=== PATIENT | female | born 1945 | race African-American/Black ===

== ENCOUNTER 2022-06-01 21:13 | Inpatient (IN) | payer OTHER ==
[~2022-06-01] VITALS: Ht 167.6 cm; Wt 73.5 kg
[2022-06-01 21:13] VITALS: BP 100/66
--- NOTE | 2022-06-01 21:24 | NUR ---
2114 RECEIEVED PATIENT FROM PARAMEDICS ON BIPAP. PLACED PT ON OUR BIPAP IPAP 12 EPAP 6 RR 20 FIO2 100%. WILL TITRATE FIO2. PT ALERT.
[2022-06-01] MEDS ORDERED: NACL 0.9% 1,000 ML IV ONE (21:45)
[2022-06-01] MEDS ORDERED: AZITHROMYCIN 500 MG in DEXTROSE 5% 250 ML IV ONE (21:45)
--- NOTE | 2022-06-01 21:47 | NUR ---
RT AT BEDSIDE FOR ABG BLOOD DRAW
--- NOTE | 2022-06-01 21:50 | NUR ---
FOOD TRUCK CATERER AT BEDSIDE OBTAINING BLOOD CULTURES
[2022-06-01 21:51] LABS: MEAN CORPUSCULAR HEMOGLOBIN 33 pg (27-31); MEAN CORPUSCULAR HGB CONC 32 g/dL (33-37); PLATELET COUNT (AUTO) 361 K/uL (140-450); RED BLOOD CELL COUNT(AUTO) 1.91 MIL/uL (4.20-5.40); RED CELL DISTRIBUTION WIDTH 19.3 % (11.6-13.7); WHITE BLOOD COUNT (AUTO) 10.4 K/uL (4.8-10.8)
[2022-06-01] MEDS ORDERED: cefTRIAXone 1,000 MG VIAL ONE (21:51)
--- NOTE | 2022-06-01 21:59 | NUR ---
XRAY AT BEDSIDE
--- NOTE | 2022-06-01 22:20 | NUR ---
# 16 FR Larson catheter with 10 ml utilizing sterile technique. Immediate return of 50 ml CLOUDY YELLOW urine noted. Bedside drainage bag placed below level of bladder. Urine sample collected and sent to lab. Pt tolerated procedure WELL.
--- NOTE | 2022-06-01 22:21 | NUR ---
2148 POST ABG. LOWERED FIO2 TO 28%
[2022-06-01 22:22] LABS: ALBUMIN 2.4 g/dL (3.4-5.0); ANION GAP 11.4 (8-16); ASPARTATE AMINOTRANSFERASE 35 U/L (15-37); CARBON DIOXIDE 27.6 mmol/L (21-32); CHLORIDE 108 mmol/L (98-107); CREATININE 2.9 mg/dL (0.6-1.3); GLUCOSE 170 mg/dL (74-106); SODIUM SERUM 143 mmol/L (136-145); TOTAL BILIRUBIN 0.5 mg/dL (0.0-1.0)
[2022-06-01 22:25] LABS: HEMOGLOBIN 6.3 g/dL (12.0-16.0)
[2022-06-01] MEDS ORDERED: FUROSEMIDE 40 MG/4 ML VIAL IVP ONE (22:25)
[2022-06-01 22:26] LABS: HEMATOCRIT 19.7 % (36-48)
[2022-06-01 22:39] LABS: UREA NITROGEN, BLOOD 89 mg/dL (7-18)
[2022-06-01 22:41] LABS: PROTHROMBIN TIME 13.6 secs (10.8-13.4)
[2022-06-01] MEDS ORDERED: AZITHROMYCIN 500 MG INJ VIAL IV ONE (22:43)
[2022-06-01 22:46] LABS: LYMPHOCYTES % (MANUAL) 0 % (20-46); MONOCYTES % (MANUAL) 9 % (5-12)
[2022-06-01 23:03] LABS: APPEARANCE,URINE CLOUDY (CLEAR); BILIRUBIN,URINE NEGATIVE (NEGATIVE); BLOOD, URINE 3+ (NEGATIVE); COLOR,URINE YELLOW (YELLOW); LEUKOCYTE ESTERASE ,URINE 2+ (NEGATIVE); NITRITE, URINE NEGATIVE (NEGATIVE); PH,URINE 5.5 (5.0-9.0); UGLUCOSE NEGATIVE (NEGATIVE)
--- NOTE | 2022-06-01 23:17 | NUR ---
PT IN SEMI FOWLERS POSITION AND RESTING COMFORTABLY. BED IN LOWEST POSITION AND RAILS UP X2.
[2022-06-01 23:31] LABS: RBC,URINE 20-50 /HPF (0-5)
[2022-06-01 23:32] LABS: YEAST,URINE Many /HPF (None Seen)
[2022-06-02] VITALS (20 sets, daily range): BP systolic 104–149; BP diastolic 57–82
--- NOTE | 2022-06-02 01:11 | NUR ---
CROP FARM HELPER AT BEDSIDE
--- NOTE | 2022-06-02 01:23 | NUR ---
COVIS/PALMIRA SWAB COLLECTED AND HANDED TO LIBRARY SUPERVISOR
[2022-06-02 01:42] LABS: ANION GAP 14.1 (8-16); CARBON DIOXIDE 26.7 mmol/L (21-32); CHLORIDE 107 mmol/L (98-107); CREATININE 2.7 mg/dL (0.6-1.3); GLUCOSE 148 mg/dL (74-106); POTASSIUM 3.8 mmol/L (3.5-5.1); SODIUM SERUM 144 mmol/L (136-145)
[2022-06-02 02:02] LABS: UREA NITROGEN, BLOOD 94 mg/dL (7-18)
[2022-06-02 02:09] LABS: PROTHROMBIN TIME 13.2 secs (10.8-13.4)
[2022-06-02] MEDS ORDERED: INTUBATION KIT MC ONE (02:52)
--- NOTE | 2022-06-02 02:59 | NUR ---
02:59 etomidate 20mg pushed 03:00 succinylcholine 100mg pushed 03:02 intubated, 23 at the teeth 03:06 XR at bedside.
[2022-06-02] MEDS ORDERED: PROPOFOL 1000 MG/100 ML PREMIX 100 ML IV ONE ×3 (03:08→12:53)
[2022-06-02] MEDS ORDERED: PROPOFOL 200 MG/20 ML VIAL IV ONE (03:15)
--- NOTE | 2022-06-02 03:15 | NUR ---
XRAY AT BEDSIDE. DR DIEHL CONFIRMED PLACEMENT OF OG TUBE AND INTUBATION.
[2022-06-02] MEDS ORDERED: NOREPINEPHRINE 4 MG/4 ML VIAL IV ONE ×2 (03:26→07:05)
--- NOTE | 2022-06-02 03:26 | NUR ---
DR. DIEHL NOTIFIED OF BP OF 76/38. VERBAL ORDER FOR LEVOPHED 4MG IV DRIP RECIEVED
[2022-06-02] MEDS ORDERED: NOREPINEPHRINE 4 MG in DEXTROSE 5% 250 ML IV PRN (03:30)
--- NOTE | 2022-06-02 03:34 | NUR ---
0245 PATIENT BECAME TACHYPNEIC ON BIPAP. PATIENT WAS DESATING. ELECTRIC FURNACE OPERATOR DR WAS CALLED AND PATIENT WAS INTUBATED BY ER DR DIEHL. TUBE SIZE WAS 7.0 AT 23 LIP. AND PLACED ON CARESCAPE VENT. SETTINGS ARE AC 20 VT 500 PEEP 5 AT 100% FIO2. SPUTUM WAS UPTAINED AND SENT TO LAB. DR DIEHL SAW CHEST XRAY AND TUBE PLACEMENT WAS OK
--- NOTE | 2022-06-02 04:00 | NUR ---
DR DIEHL PLACING CENTRAL LINE
--- NOTE | 2022-06-02 04:09 | NUR ---
XRAY AT BEDSIDE FOR CENTRAL LINE PLACEMENT
--- NOTE | 2022-06-02 04:19 | NUR ---
TALKED TO SON AND DAUGHTER ABOUT PT CONDITION. OBTAINED VERBAL CONSENT FOR BLOOD TRANSFUSION.
--- NOTE | 2022-06-02 04:42 | NUR ---
0430 POST ABG. LOWERED FIO2 TO 28% AND LOWERED RATE TO 16 ON VENT
[2022-06-02] MEDS ORDERED: PIPERACILLIN/TAZOBACTAM 2.25 GM VIAL IV ONE (06:02)
[2022-06-02] MEDS: PIPERACILLIN/TAZOBACTAM 2.25 GM in DEXTROSE 5% 50 ML IV SCH ×3 (06:08→21:00)
--- NOTE | 2022-06-02 06:50 | NUR ---
Patient will be admitted to care of DR ROBBINS. Admited to ICU. Will go to room ICU-5. Belongings list completed. Report to HELDER YAÑEZ.
--- NOTE | 2022-06-02 07:00 | NUR ---
RECEIVED ENDORSEMENT FROM ER NURSE (BAHMAN Cruz
--- NOTE | 2022-06-02 07:35 | NUR ---
SBAR REPORT RECEIVED FROM PARI PENDLTEON, ALL CARES ASSUMED. PT INTUBATED, SEDATED WITH PROPOFOL DRIP. PRICE CATHETER DRAINING TO GRAVITY. BED IN LOW AND LOCKED POSITION.
[2022-06-02] MEDS ORDERED: LORazepam 2 MG/ML VIAL IVP PRN (07:45)
[2022-06-02] MEDS ORDERED: ONDANSETRON 4 MG/2 ML VIAL IVP PRN (07:45)
[2022-06-02] MEDS ORDERED: DOCUSATE SODIUM 100 MG GELCAP PO PRN (07:45)
[2022-06-02] MEDS ORDERED: MAG SULF 2000 MG/WATER PREMIX 50 ML IV PRN (07:45)
[2022-06-02] MEDS ORDERED: POTASSIUM CHLORIDE 10 MEQ TABER PO PRN (07:45)
[2022-06-02] MEDS ORDERED: ZOLPIDEM 5 MG TAB PO PRN (07:45)
--- NOTE | 2022-06-02 07:51 | NUR ---
ENDORSED PATIENT TO DAY SHIFT (CADY Johnson RN)
--- NOTE | 2022-06-02 08:03 | NUR ---
TECHNICAL ERROR IV TITRATION SPREADSHEET DELETED, UNABLE TO FILE TITRATION OF VITALS AND MEDICATION, ALL DOCUMENTATION DELETED. ALL INFORMATION VERIFIED BY 2ND NURSE PRECIOIUS, RN. 04:55 LEVO 18MCG BP 118/76, O2 97%, HR 116 PROPOFOL 14.25ML/HR RASS -2 05:40 LEVO 18MCG BP 100/52, O2 97%, HR 112 PROPOFOL 14.25ML/HR RASS -2 05:45 LEVO 18MCG BP 82/52, O2 96%, HR 116 PROPOFOL 14.25ML/HR RASS -1 05:50 LEVO 20MCG BP 74/43, O2 100%, HR 120 PROPOFOL 14.25ML/HR RASS -1 05:55 LEVO 22MCG BP 99/58, O2 96%, HR 116 PROPOFOL 14.25ML/HR RASS -2 06:00 LEVO 22MCG BP 104/76, O2 98%, HR 111 PROPOFOL 14.25ML/HR RASS -2 06:05 LEVO 22MCG BP 101/70, O2 96%, HR 121 PROPOFOL 14.25ML/HR RASS -2 06:10 LEVO 22MCG BP 99/54, O2 96%, HR 104 PROPOFOL 14.25ML/HR RASS -2 06:55 LEVO 22MCG BP 108/66, O2 97%, HR 115 PROPOFOL 14.25ML/HR RASS -2
--- NOTE | 2022-06-02 09:15 | NUR ---
SON OF PT AT BEDSIDE. UPDATE GIVEN, ALL QUESTIONS ANSWERED AT THIS TIME.
[2022-06-02] MEDS: FUROSEMIDE 40 MG/4 ML VIAL IVP SCH (09:51)
[2022-06-02] MEDS: PANTOPRAZOLE 40 MG INJ VIAL IVP SCH (09:52)
[2022-06-02 11:29] LABS: BASOPHILS % (AUTO) 0.3 % (0.0-2.0); EOSINOPHILS # (AUTO) 0.1 K/uL (0-0.4); EOSINOPHILS % (AUTO) 0.5 % (0.0-4.0); HEMATOCRIT 22.6 % (36-48); HEMOGLOBIN 7.4 g/dL (12.0-16.0); LYMPHOCYTES # (AUTO) 0.5 K/uL (2.5-16.5); MEAN CORPUSCULAR HEMOGLOBIN 32 pg (27-31); MEAN CORPUSCULAR HGB CONC 33 g/dL (33-37); MEAN CORPUSCULAR VOLUME 97.7 fL (80-94); MONOCYTES # (AUTO) 1.6 K/uL (0.8-1.0); NEUTROPHILS # (AUTO) 9.2 K/uL (1.8-7.7); NEUTROPHILS % (AUTO) 81.2 % (42.2-75.2); PLATELET COUNT (AUTO) 331 K/uL (140-450); RED BLOOD CELL COUNT(AUTO) 2.31 MIL/uL (4.20-5.40); RED CELL DISTRIBUTION WIDTH 20.1 % (11.6-13.7); WHITE BLOOD COUNT (AUTO) 11.3 K/uL (4.8-10.8)
--- NOTE | 2022-06-02 12:45 | NUR ---
WOUND CARE EVALUATION NOTES: REASON FOR EVALUATION: SACRAL AND RIGHT FOOT WOUNDS. WOUND ASSESSMENT COMPLETED ON THIS 76 Y/O FEMALE ADMITTED TO ICU UNIT FOR SEVERE ANEMIA, UTI, PNA. PATIENT IS TOTAL CARE, INTUBATED, TUBE FEEDING, BEDBOUND. APHASIC. PLAN OF CARE AND PRESSURE PREVENTATIVE MEASURES DISCUSSED WITH PATIENT AND PRIMARY RN. PATIENT ADMITTED WITH WOUNDS ON SACRALCOCCYX, RIGHT LOWER EXTREMITY, AND RIGHT FOOT. COMORBIDITIES RELATED TO FURTHER SKIN BREAKDOWN SUCH IMPAIRED OR DECREASED MOBILITY AND DECREASED FUNCTIONAL ABILITY, LOW ALBUMIN LEVEL. INTEGUMENTARY: - RIGHT LATERAL LOWER EXTREMITY ULCER - 6 X 4 X 1 CM, WOUND BED PINK WITH YELLOW SLOUGH, MINIMAL SEROUS DISCHARGE, NO ODOR. ODESSA-WOUND INTACT. - RIGHT FOOT MULTIPLE UNSTAGEABLE WOUNDS: - LARGEST ON RIGHT HEEL 6 X 8 X 0 CM, WOUND BED BLACK, ROUGH, HARD, NO DISCHARGE, NO ODOR, PERIWOUND INTACT. - RIGHT ANTERIOR DORSUM FOOT 4 X 3.5 X 0 CM, WOUND BED BLACK, ROUGH, HARD, NO DISCHARGE, NO ODOR, PERIWOUND INTACT. - RIGHT ANTERIOR LATERAL DORSUM FOOT 4 X 4 X 0 CM WOUND BED BLACK, ROUGH, HARD, NO DISCHARGE, NO ODOR, PERIWOUND INTACT. - RIGHT 2ND ANTERIOR TOE 1 X 1 X 0 CM, WOUND BED BLACK, ROUGH, HARD, NO DISCHARGE, NO ODOR, PERIWOUND INTACT. - RIGHT PLANTAR HALLUX 2 X 2 X 0 CM, WOUND BED BLACK, ROUGH, HARD, NO DISCHARGE, NO ODOR, PERIWOUND INTACT. - SACRALCOCCYX 1 X 1 X 0.1 CM STAGE II PRESSURE ULCER, WOUND BED PINK, MINIMAL SEROSANGUINOUS DRAINAGE, NO ODOR. PERIWOUND DENUDED. RECOMMENDATIONS: - RIGHT LATERAL LOWER EXTREMITY ULCER: CLEANSE WITH NS, PAT DRY, APPLY THERAHONEY, COVER WITH GAUZE, AND COVER WITH FOAM DRESSING DAILY AND PRN IF SOILED. - RIGHT FOOT MULTIPLE UNSTAGEABLE WOUNDS: ALL WOUNDS -- CLEANSE WITH NS, PAT DRY, APPLY SKINTEGRITY BARRIER, AND LEAVE WATER JET LOOM FIXER DAILY AND PRN IF SOILED. - SACRALCOCCYX: CLEANSE WITH NS, PAT DRY, APPLY Z-GAURD, COVER WITH FOAM DRESSING DAILY AND PRN IF SOILED. - OFFLOAD BILATERAL HEELS BY PLACING BILATERAL HEEL PROTECTORS. - TURN AND REPOSITION PATIENT Q2H TO LEFT AND RIGHT SIDE TO OFFLOAD SACRALCOCCYX. - ASSESS AND MONITOR SKIN CONDITION DURING POSITION CHANGE. PLEASE PAY ATTENTION TO SACRALCOCCYX AND HEELS. - KEEP SKIN DRY AND CLEAN AT ALL TIMES. - RD CONSULT RECOMMENDATIONS DISCUSSED WITH PRIMARY RN. WILL FOLLOW-UP PATIENT Q7-10 DAYS AND PRN. PLEASE CONTACT WOUND CARE NURSE FOR ANY CONCERNS AND CHANGES IN WOUND CONDITION.
--- NOTE | 2022-06-02 13:01 | NUR ---
PATIENT HAS BEEN SCREENED AND CATEGORIZED HIGH NUTRITION RISK. PATIENT WILL BE SEEN WITHIN 1-2 DAYS OF ADMISSION. / LIVIER GRIFFIN RD
[2022-06-02] MEDS: METOCLOPRAMIDE 10 MG/10 ML SYRP UDC GT SCH (16:30)
[2022-06-02] MEDS ORDERED: DILTIAZEM 125 MG in DEXTROSE 5% 100 ML IV PRN (18:40)
--- NOTE | 2022-06-02 19:39 | NUR ---
SBAR REPORT GIVEN TO YEISON PENDLETON, ALL CARES ENDORSED.
[2022-06-02] MEDS ORDERED: DILTIAZEM 125 MG/25 ML VIAL IV ONE ×2 (20:03→21:57)
[2022-06-02 21:29] LABS: MAGNESIUM 2.5 mg/dL (1.8-2.4); PHOSPHORUS 4.3 mg/dL (2.5-4.9)
[2022-06-03] VITALS (27 sets, daily range): BP systolic 97–135; BP diastolic 52–72
[2022-06-03] MEDS: PROPOFOL 1000 MG/100 ML PREMIX 100 ML IV PRN ×5 (00:09→22:22)
--- NOTE | 2022-06-03 00:52 | NUR ---
PATIENT SEDATED RASS -3 ET-TUBE RATE 15, TV 500, FI02 30% PEEP 5 SAT 100%. STARTED CARDIZEM 10 MG,2030 HEART RATE 137. PROPOFOL AT 30 MCG, LEVOPHED AT 6 MCG. B/P 107/72 URINE FOR RANDOM NA, PROTEIN, CREAT. SENT.PATIENT HAS RIGHT SUB-CLAVIAN TRIPLE LUMEN PATIENT HAS A GT CLAMPED. PATIENT HAS A F/C DRAINING YELLOW URINE. PATIENT A-FIB. NO DISTRESS NOTED.
[2022-06-03] MEDS: GAUZE TP SCH ×2 (01:28→13:07)
[2022-06-03] MEDS: THERAHONEY GEL 42.5 GM TP SCH ×2 (01:31→13:08)
[2022-06-03] MEDS: Z-GUARD PASTE TP SCH ×2 (01:32→13:08)
[2022-06-03] MEDS: NOREPINEPHRINE 8 MG in DEXTROSE 5% 250 ML IV PRN (03:00)
--- NOTE | 2022-06-03 04:14 | NUR ---
STARTED FEEDING 0200 NEPRO 20 HOUR GOAL 45 WATER FLUSH 50CC EVERY 8 HOUR.
[2022-06-03] MEDS: PIPERACILLIN/TAZOBACTAM 2.25 GM in DEXTROSE 5% 50 ML IV SCH ×3 (05:00→22:15)
[2022-06-03 05:57] LABS: BASOPHILS % (AUTO) 0.1 % (0.0-2.0); EOSINOPHILS # (AUTO) 0.1 K/uL (0-0.4); HEMATOCRIT 24.6 % (36-48); HEMOGLOBIN 8.2 g/dL (12.0-16.0); LYMPHOCYTES # (AUTO) 0.6 K/uL (2.5-16.5); MEAN CORPUSCULAR HEMOGLOBIN 32 pg (27-31); MEAN CORPUSCULAR HGB CONC 33 g/dL (33-37); MEAN CORPUSCULAR VOLUME 95.7 fL (80-94); MONOCYTES # (AUTO) 1.4 K/uL (0.8-1.0); PLATELET COUNT (AUTO) 308 K/uL (140-450); RED BLOOD CELL COUNT(AUTO) 2.57 MIL/uL (4.20-5.40); RED CELL DISTRIBUTION WIDTH 19.3 % (11.6-13.7)
[2022-06-03 06:44] LABS: ANION GAP 12.7 (8-16); CARBON DIOXIDE 26.8 mmol/L (21-32); CHLORIDE 107 mmol/L (98-107); CREATININE 2.7 mg/dL (0.6-1.3); GLUCOSE 89 mg/dL (74-106); POTASSIUM 3.5 mmol/L (3.5-5.1); SODIUM SERUM 143 mmol/L (136-145)
[2022-06-03 07:14] LABS: UREA NITROGEN, BLOOD 89 mg/dL (7-18)
--- NOTE | 2022-06-03 07:15 | NUR ---
SBAR REPORT RECEIVED FROM IRINA PENDLETON, ALL CARES ASSUMED. PT INTUBATED, SEDATED WITH PROPOFOL DRIP. LEVOPHED AND DILTIAZEM DRIP ACTIVE WELL. PRICE CATHETER DRAINING TO GRAVITY. BED IN LOW AND LOCKED POSITION.
[2022-06-03 07:57] LABS: LYMPHOCYTES % (AUTO) 5.6 % (20.5-51.1); MONOCYTES % (AUTO) 13.5 % (1.7-9.3); NEUTROPHILS % (AUTO) 79.8 % (42.2-75.2)
[2022-06-03] MEDS: FUROSEMIDE 40 MG/4 ML VIAL IVP SCH ×2 (08:24→22:33)
[2022-06-03] MEDS: METOCLOPRAMIDE 10 MG/10 ML SYRP UDC GT SCH ×3 (08:24→16:55)
[2022-06-03] MEDS: PANTOPRAZOLE 40 MG INJ VIAL IVP SCH (08:24)
--- NOTE | 2022-06-03 09:00 | NUR ---
DR. HOANG ROUNDARIANNA AT BEDSIDE. VERBAL ORDER TO STOP DILTIAZEM DRIP TO AID IN WEANING OF LEVOPHED. VERBAL ORDER TO START AMIODARONE DRIP IF PT BEGINS TO HAVE AFIB AGAIN.
--- NOTE | 2022-06-03 11:00 | NUR ---
DR. SANDERSON ROUNDING AT BEDSIDE. UPDATE GIVEN, NO NEW ORDERS RECEIVED AT THIS TIME.
[2022-06-03] MEDS ORDERED: LIP80 PO (11:12)
[2022-06-03] MEDS ORDERED: RIVA20TA PO (11:25)
[2022-06-03] MEDS ORDERED: DULO20EC PO (11:25)
[2022-06-03] MEDS ORDERED: ATRN INH (11:25)
[2022-06-03] MEDS ORDERED: FERR325E14 PO (11:25)
[2022-06-03] MEDS ORDERED: FURO-572 PO (11:25)
[2022-06-03] MEDS ORDERED: CILO100T PO (11:25)
[2022-06-03] MEDS ORDERED: MULT-2253 PO (11:25)
[2022-06-03] MEDS ORDERED: DILT30TA18 PO (11:25)
[2022-06-03] MEDS ORDERED: DILTIAZEM 30 MG TAB PO SCH (13:00)
[2022-06-03] MEDS: FERROUS SULFATE 325 MG TABEC PO SCH ×2 (13:17→16:55)
--- NOTE | 2022-06-03 15:55 | NUR ---
DR. BONDS ROUNDING AT BEDSIDE. PLAN OF CARE DISCUSSED. DR. BONDS TO INPUT ORDERS.
[2022-06-03] MEDS: AMIODARONE 200 MG TAB PO SCH (16:54)
--- NOTE | 2022-06-03 19:44 | NUR ---
SBAR REPORT GIVEN TO IRINA RN, ALL CARES ENDORSED.
[2022-06-03] MEDS: cilostazoL 100 MG TAB PO SCH (22:33)
[2022-06-03] MEDS: ATORVASTATIN 80 MG TAB PO SCH (22:33)
[2022-06-04] VITALS (26 sets, daily range): BP systolic 69–141; BP diastolic 52–82
[2022-06-04 00:23] LABS: APPEARANCE,URINE CLEAR (CLEAR); BILIRUBIN,URINE NEGATIVE (NEGATIVE); BLOOD, URINE 3+ (NEGATIVE); COLOR,URINE YELLOW (YELLOW); LEUKOCYTE ESTERASE ,URINE TRACE (NEGATIVE); NITRITE, URINE NEGATIVE (NEGATIVE); PH,URINE 5.5 (5.0-9.0); UGLUCOSE NEGATIVE (NEGATIVE)
[2022-06-04 00:28] LABS: RBC,URINE 80-100 /HPF (0-5); TRIPLE PHOSPHATE CRYSTAL,UR None Seen /HPF (None Seen); URIC ACID CRYSTALS,URINE 0-10 /HPF (None Seen); WBC,URINE 20-60 /HPF (0-5)
[2022-06-04] MEDS: GAUZE TP SCH ×2 (01:00→13:24)
[2022-06-04] MEDS: THERAHONEY GEL 42.5 GM TP SCH ×2 (01:00→13:24)
[2022-06-04] MEDS: Z-GUARD PASTE TP SCH ×2 (01:00→13:31)
--- NOTE | 2022-06-04 01:19 | NUR ---
PATIENT SEDATED ON PROPOFOL 30 MCG. LEVOPHED 3 MCG. PATIENT HAS RT. SUBCLAVIAN TRIPLE LUMEN. PATIENT A-FIB HEART RATE HIGH 104 LOW 84. LUNGS DIMINISH HAS G-TUBE INFUSING NEPRO GOAL 45CC HOUR NO RESIDUAL RECEIVING 50 CC WATER FLUSH EVERY EIGHT HOURS.
[2022-06-04] MEDS: NOREPINEPHRINE 8 MG in DEXTROSE 5% 250 ML IV PRN ×2 (03:55→20:55)
[2022-06-04] MEDS: PROPOFOL 1000 MG/100 ML PREMIX 100 ML IV PRN ×3 (03:58→16:59)
[2022-06-04] MEDS: PIPERACILLIN/TAZOBACTAM 2.25 GM in DEXTROSE 5% 50 ML IV SCH ×3 (05:46→21:13)
[2022-06-04 06:26] LABS: ANION GAP 13.2 (8-16); CARBON DIOXIDE 26.8 mmol/L (21-32); CHLORIDE 105 mmol/L (98-107); CREATININE 2.7 mg/dL (0.6-1.3); GLUCOSE 145 mg/dL (74-106); SODIUM SERUM 141 mmol/L (136-145)
[2022-06-04 06:29] LABS: BASOPHILS % (AUTO) 0.3 % (0.0-2.0); EOSINOPHILS # (AUTO) 0.1 K/uL (0-0.4); HEMOGLOBIN 9.6 g/dL (12.0-16.0); LYMPHOCYTES # (AUTO) 0.7 K/uL (2.5-16.5); LYMPHOCYTES % (AUTO) 6.5 % (20.5-51.1); MEAN CORPUSCULAR HEMOGLOBIN 32 pg (27-31); MEAN CORPUSCULAR HGB CONC 33 g/dL (33-37); MEAN CORPUSCULAR VOLUME 96.3 fL (80-94); MONOCYTES # (AUTO) 1.2 K/uL (0.8-1.0); MONOCYTES % (AUTO) 11.5 % (1.7-9.3); NEUTROPHILS # (AUTO) 8.2 K/uL (1.8-7.7); NEUTROPHILS % (AUTO) 80.7 % (42.2-75.2); PLATELET COUNT (AUTO) 335 K/uL (140-450); RED BLOOD CELL COUNT(AUTO) 3.01 MIL/uL (4.20-5.40); RED CELL DISTRIBUTION WIDTH 19.6 % (11.6-13.7); UREA NITROGEN, BLOOD 82 mg/dL (7-18); WHITE BLOOD COUNT (AUTO) 10.2 K/uL (4.8-10.8)
--- NOTE | 2022-06-04 07:20 | NUR ---
SBAR REPORT RECEIVED FROM IRINA PENDLETON, ALL CARES ASSUMED. PT INTUBATED, SEDATED WITH PROPOFOL DRIP. LEVOPHED DRIP ACTIVE. PRICE CATHETER DRAINING TO GRAVITY. BED IN LOW AND LOCKED POSITION.
[2022-06-04] MEDS: METOCLOPRAMIDE 10 MG/10 ML SYRP UDC GT SCH ×3 (08:36→16:58)
[2022-06-04] MEDS: FERROUS SULFATE 300 MG/5 ML UDC GT SCH ×3 (08:37→16:58)
[2022-06-04] MEDS: FUROSEMIDE 40 MG/4 ML VIAL IVP SCH ×2 (08:37→21:13)
[2022-06-04] MEDS: PANTOPRAZOLE 40 MG INJ VIAL IVP SCH (08:37)
[2022-06-04] MEDS: AMIODARONE 200 MG TAB PO SCH (08:38)
[2022-06-04] MEDS: cilostazoL 100 MG TAB PO SCH ×2 (08:38→21:14)
--- NOTE | 2022-06-04 08:55 | NUR ---
DR. SANDERSON ROUNDING AT BEDSIDE. UPDATE GIVEN, NO NEW ORDERS AT THIS TIME.
[2022-06-04] MEDS ORDERED: FUROSEMIDE 20 MG/2 ML VIAL IVP SCH (09:00)
[2022-06-04] MEDS ORDERED: NON-FORMULARY ITEM (Duloxetine HCl* (Cymbalta*) 20 MG) PO SCH (09:00)
[2022-06-04] MEDS ORDERED: FUROSEMIDE 20 MG TAB PO SCH (09:00)
--- NOTE | 2022-06-04 12:31 | NUR ---
PT. WITH LOW FRANCA SCALE AT MODERATE TO HIGH RISK, CONTINUE TO FOLLOW PRESSURE INJURY PREVENTION INTERVENTIONS. -POSITIONING: TURN AND REPOSITION PATIENT Q 2H OR SOONER USE PILLOWS TO KEEP BONY PROMINENCES FROM DIRECT CONTACT WITH SURFACES USE REPOSITIONING WEDGES TO PROVIDE 30-DEGREE ANGLE FOR SIDE LYING POSITIONS OFFLOADING OR FOAM DRESSING TO ALL TUBING TO PREVENT MEDICAL DEVICES RELATED PRESSURE INJURY -RE-EVALUATING AND MANAGING INCONTINENCE MONITOR SKIN CONDITION DURING POSITION CHANGE DO NOT MASSAGE REDNESS, BONY PROMINENCES FREQUENT ODESSA-CARE AND PROVIDE BARRIER CREAMS PRN IF SOILING MOISTURE CONTROL BY OFFER BED GARCIA/URINAL /ABSORBENT PAD TO WICK AND HOLD MOISTURE KEEP SKIN DRY AND PROTECT FROM FRICTION -MANAGE FRICTION/SHEAR/MOBILITY KEEP HOB AT THE LOWEST LEVEL OF ELEVATION NO MORE THAN 30 DEGREE UNLESS OTHERWISE CONTRAINDICATED USE LIFT SHEET OR TRANSFER DEVICE TO MOVE PATIENT AND PREVENT LATERAL SHEER. PROTECT HEELS, ELBOWS BONY PROMINENCES WITH SKIN BERRIES OR FOAM DRESSING IF EXPOSED TO FRICTION OFFLOAD BILATERAL HEELS BY PLACING PILLOWS UNDER CALVES AT ALL TIMES, UNLESS OTHERWISE CONTRAINDICATED -PRESSURE REDISTRIBUTION SURFACE THERAPY LUZ ISOFLEX MATTRESS -NUTRITION: PLEASE FOLLOW RD RECOMMENDATIONS AND OFFER NUTRITION SUPPLEMENTS IF ORDERED.
--- NOTE | 2022-06-04 12:45 | NUR ---
DR. HOANG PERFORMED BEDSIDE BRONCHOSCOPY. PT TOLERATED WELL. VSS.
--- NOTE | 2022-06-04 13:12 | NUR ---
RT NOTES RT CALLED TO PT ROOM TO ASSIST IN A THERAPEUTIC AND DIAGNOSTIC BRONCHOSCOPY PERFORMED BY DR. HOANG @ 3711. SPUTUM SAMPLE COLLECTED. PT TOLERATED PROCEDURE WELL. NO DISTRESS NOTED.
[2022-06-04] MEDS: MIDODRINE 5 MG TAB PO SCH ×2 (13:24→19:06)
--- NOTE | 2022-06-04 16:07 | NUR ---
06/04/2022 RD INITIAL ASSESSMENT COMPLETED PLEASE REFER TO NUTRITION ASSESSMENT UNDER CARE ACTIVITY FOR ESTIMATED NUTRITIONAL NEEDS. 1.CONTINUE WITH NEPRO WITH GOAL RATE @45 ML/HR PT TOLERATES; FWF 50 ML Q8H 2.MONITOR FOR GASTRIC RESIDUAL 3.RD TO FOLLOW-UP IN 2-3 DAYS PATIENT IS HIGH RISK. RONNY CARLIN RD
--- NOTE | 2022-06-04 19:22 | NUR ---
SBAR REPORT GIVEN TO LAUREN PENDLETON, ALL CARES ENDORSED.
--- NOTE | 2022-06-04 19:25 | NUR ---
RECEIVED PT. FROM DAYS SHIFT HELDER SUERO. PT. ON ETT A/C PRVC RATE 16, FIO2 21%, TV 500, PEEP 5. IV RIGHT SUBCLAVIAN CENTRAL LINE RUNNING PROPOFOL DRIP 10 MCG/KG/MIN, LEVOPHED 8 MCG/MIN, PRECEDEX 0.5 MCG/KG/HR. PT. CONTROLLED AFIB ON MONITOR. NEPRO 45 ML/HR TOLERATING WELL. REPOSITIONED AND PLACED IN COMFORTABLE POSITION. BEDLOCK AND PLACED IN LOWEST HEIGHT. WILL CONT. TO MONITOR.
--- NOTE | 2022-06-04 19:41 | NUR ---
DAY SHIFT RN REPORT THAT PT. HAS AN ORDER FOR PICC LINE INSERTION. PICC LINE NURSE TONA NOTIFIED. CHARGE NURSE ALE CALLED THE SISTER OF THE PT. TO GET CONSENT AND WITNESSED BY ME. Addendum: 06/04/22 at 2010 by Elisa Gusman RN ERROR, WRONG PT.
[2022-06-04] MEDS: ATORVASTATIN 80 MG TAB PO SCH (21:14)
[2022-06-05] VITALS (28 sets, daily range): BP systolic 91–155; BP diastolic 51–91
--- NOTE | 2022-06-05 00:06 | NUR ---
RIGHT SUBCLAVIAN CENTRAL LINE DRESSING CHANGED. SITE PATENT AND INTACT. NO S/S OF INFECTION.
[2022-06-05] MEDS: GAUZE TP SCH ×2 (01:00→12:47)
[2022-06-05] MEDS: Z-GUARD PASTE TP SCH ×2 (01:00→12:47)
[2022-06-05] MEDS: THERAHONEY GEL 42.5 GM TP SCH ×2 (01:00→12:47)
[2022-06-05] MEDS: DEXMEDETOMIDINE HCL 400 MCG in NACL 0.9% 96 ML IV PRN ×2 (03:03→06:43)
--- NOTE | 2022-06-05 05:03 | NUR ---
LAB CAME FOR BLOOD DRAWN.
[2022-06-05 05:15] LABS: ANION GAP 11.3 (8-16); CARBON DIOXIDE 29.9 mmol/L (21-32); CHLORIDE 105 mmol/L (98-107); CREATININE 2.6 mg/dL (0.6-1.3); GLUCOSE 168 mg/dL (74-106); POTASSIUM 3.2 mmol/L (3.5-5.1); SODIUM SERUM 143 mmol/L (136-145)
[2022-06-05] MEDS: PIPERACILLIN/TAZOBACTAM 2.25 GM in DEXTROSE 5% 50 ML IV SCH ×3 (05:16→21:20)
[2022-06-05 05:22] LABS: BASOPHILS % (AUTO) 0.4 % (0.0-2.0); EOSINOPHILS # (AUTO) 0.1 K/uL (0-0.4); EOSINOPHILS % (AUTO) 1.6 % (0.0-4.0); HEMATOCRIT 23.1 % (36-48); HEMOGLOBIN 7.6 g/dL (12.0-16.0); LYMPHOCYTES # (AUTO) 0.5 K/uL (2.5-16.5); LYMPHOCYTES % (AUTO) 5.6 % (20.5-51.1); MEAN CORPUSCULAR HEMOGLOBIN 32 pg (27-31); MEAN CORPUSCULAR HGB CONC 33 g/dL (33-37); MEAN CORPUSCULAR VOLUME 96.5 fL (80-94); MONOCYTES # (AUTO) 0.9 K/uL (0.8-1.0); MONOCYTES % (AUTO) 9.8 % (1.7-9.3); NEUTROPHILS # (AUTO) 7.6 K/uL (1.8-7.7); NEUTROPHILS % (AUTO) 82.6 % (42.2-75.2); PLATELET COUNT (AUTO) 305 K/uL (140-450); RED BLOOD CELL COUNT(AUTO) 2.39 MIL/uL (4.20-5.40); WHITE BLOOD COUNT (AUTO) 9.2 K/uL (4.8-10.8)
[2022-06-05 05:28] LABS: UREA NITROGEN, BLOOD 78 mg/dL (7-18)
[2022-06-05] MEDS: MIDODRINE 5 MG TAB PO SCH ×3 (06:08→18:36)
[2022-06-05] MEDS ORDERED: DEXMEDETOMIDINE HCL 100 MCG/ML 2 ML VIAL IV ONE (06:38)
--- NOTE | 2022-06-05 07:15 | NUR ---
RECEIVED BEDSIDE REPORT FROM LAUREN JOE RN FOR CONTINUITY OF CARE. PT IS SUPINE IN THE BED, SEDATED, RASS -1. ETT TO VENT, ACPRVC FIO2 21% VT 500 R 16 PEEP 5. AFIB ON THE MONITOR, BP 123/64. RW 20G SALINE LOCK, PATENT, INTACT. R SUBCLAVIAN CENTRAL LINE IN PLACE, INFUSING PROPOFOL AT 2 MCG/KG/MIN, LEVOPHED AT 5 MCG/MIN, PRECEDEX AT 0.5 MCG/KG/MIN, AND NS TKO AT 1 ML/H. GTUBE IN PLACE INFUSING NEPRO AT 45 ML/HR W FWF AT 50ML Q8H. F/C IN PLACE, DRAINING CLEAR YELLOW URINE. MOD WEAKNESS TO BUE, GEN WEAKNESS TO BLE. SKIN NOT INTACT, SEE WOUND ASSESSMENT. ON STANDARD PRECAUTIONS. CALL LIGHT WITHIN REACH. SAFETY PRECAUTIONS MET. INITIAL ASSESSMENT COMPLETE, WILL CONTINUE TO CLOSELY MONITOR. Addendum: 06/05/22 at 1558 by Trinh Valenzuela RN PT HAS BL SOFT W RESTRAINTS, NO S/S INJURY, RENEW AT 0600.
--- NOTE | 2022-06-05 07:20 | NUR ---
RECEIVED PT ON PRVC RR16, TV 500, IT 1.0, 21% FIO2. WHEELS ARE LOCKED AND AMBU BAG AT BEDSIDE, ALARMS ARE SET AND AUDIBLE. PT IS RESTING COMFORTABLY. SUCTIONED SCANT AMOUNT THIN SECRETIONS. BREATH SOUNDS WERE SLIGHTLY COARSE ON EXHALATION. SATURATION IS 98% ON 21%FIO2
--- NOTE | 2022-06-05 07:44 | NUR ---
REPORT GIVEN TO HELDER WATT FOR CONTINUITY OF CARE.
[2022-06-05] MEDS: PANTOPRAZOLE 40 MG INJ VIAL IVP SCH (08:22)
[2022-06-05] MEDS: METOCLOPRAMIDE 10 MG/10 ML SYRP UDC GT SCH ×3 (08:22→16:29)
[2022-06-05] MEDS: FERROUS SULFATE 300 MG/5 ML UDC GT SCH ×3 (08:22→16:29)
[2022-06-05] MEDS: AMIODARONE 200 MG TAB PO SCH (08:22)
[2022-06-05] MEDS: cilostazoL 100 MG TAB PO SCH ×2 (08:22→21:22)
[2022-06-05] MEDS: FUROSEMIDE 40 MG/4 ML VIAL IVP SCH ×2 (08:23→21:21)
--- NOTE | 2022-06-05 08:25 | NUR ---
TUBE FEED RESIDUAL 200CC, HELD FEEDING PER PARAMETERS. WILL REASSESS AROUND 1200
--- NOTE | 2022-06-05 08:25 | NUR ---
AM MEDS GIVEN ORDERED. NADR. WILL CONTINUE TO MONITOR
--- NOTE | 2022-06-05 10:00 | NUR ---
PT REPOSITIONED. NO STOOL NOTED.
--- NOTE | 2022-06-05 10:45 | NUR ---
SEEN AND EXAMINED BY DR HOANG. ORDERS RECEIVED.
--- NOTE | 2022-06-05 10:50 | NUR ---
PLACED PT ON CPAP. STARTED OUT AT 12/5 AND TITRATED HER DOWN TO 10/5. PT HAS TOLERATED CPAP WELL.
--- NOTE | 2022-06-05 10:50 | NUR ---
STARTED CPAP TRIAL, TOLERATING WELL. WILL CONTINUE TO MONITOR VS AND PT CONDITION.
--- NOTE | 2022-06-05 13:00 | NUR ---
TUBE FEED RESIDUAL 60 ML, RESTARTED FEEDING PER PARAMETERS. WILL REASSESS AROUND 1600.
--- NOTE | 2022-06-05 13:20 | NUR ---
READ ABG RESULTS TO DR HOANG, RECEIVED TORB TO EXTUBATE PT, PLACE ON NC. RT PAT AWARE. Addendum: 06/05/22 at 1540 by Trinh Valenzuela RN WRONG TIME PLEASE DISREGARD.
[2022-06-05] MEDS ORDERED: POTASSIUM CHLORIDE 20% 40 MEQ/15 ML UDC GT PRN (13:30)
--- NOTE | 2022-06-05 13:35 | NUR ---
DR BANKS ROUNDING AT BEDSIDE. NO NEW ORDERS.
--- NOTE | 2022-06-05 13:45 | NUR ---
IA DAUGHTER MIGEL AT BEDSIDE. UPDATED REGARDING PLAN OF CARE, ALL QUESTIONS ANSWERED.
[2022-06-05] MEDS ORDERED: KCL 20 MEQ/WATER INJ PREMIX 200 ML IV SCH (14:00)
--- NOTE | 2022-06-05 14:45 | NUR ---
XRAY AT BEDSIDE.
--- NOTE | 2022-06-05 15:10 | NUR ---
SEEN AND EXAMINED BY DR BONDS. NO NEW ORDERS.
--- NOTE | 2022-06-05 15:17 | NUR ---
READ ABG RESULTS TO DR HOANG, RECEIVED TORB TO EXTUBATE PT, PLACE ON NC. RT PAT NOWAK.
--- NOTE | 2022-06-05 15:38 | NUR ---
PT EXTUBATED BY RT PAT. TOLERATED WELL. PLACED ON 2L NC. WILL CONTINUE TO CLOSELY MONITOR.
--- NOTE | 2022-06-05 15:38 | NUR ---
EXTUBATED PT SUCCESSFULLY AND PLACED ON 2L NASAL CANNULA, SATURATION WAS 99%. PT IS RESTING COMFORTABLY.
--- NOTE | 2022-06-05 15:57 | NUR ---
DC PLANNING SW OUTREACHED TO PATIENTS DAUGHTER, MIGEL TO GATHER COLLATERAL INFORMATION. MIGEL REPORTS PATIENT HAS BEEN WITH [facility] SINCE 03/29/22. MIGEL REPORTS PATIENT RESIDED WITH HER PREVIOUS TO SNF. MIGEL REPORTS THAT PATIENT IS TOTAL CARE AND IS BEDBOUND. MIGEL IDENTIFIED HERSELF AND BROTHER, JIM EMERGENCY CONTACT. MIGEL REPORTED BOTH ARE ACTIVE IN MOMS CARE. DC PLAN IS FOR PATIENT TO RETURN TO [facility] WHEN CLINICALLY STABLE. SW INQUIRED ON RESOURCES NEEDED AT THIS TIME, MIGEL DECLINED AT THIS TIME.
--- NOTE | 2022-06-05 19:20 | NUR ---
RECEIVED REPORT FROM FROM LALITO PENDLETON. PT IS AWAKE ,ALERT AND ATTENTIVE. PT NO LONGER ON PRESSORS PROPOFOL IS OFF SHE IS AFEBRILE AND HER BP IS WNL;. SHE IS POSITIONED ON HER RIGHT SIDE AND SHE IS DROOLING FROM THE MOUTH. SHE IS APHASIC BUT NODS HER HEAD APPROPRIATELY WHEN QUESTIONED. SHE IS RECEIVING NEPRO TUBE FEEDING AT 45CC/H WITH FREE H20 FLUSH AT 50CC Q8 HOURS. SHE HAS A PRICE CATH IN PLACE AND IT'S DRAINING CLEAR PALE COLORED URINE SHE HAS A 3 LUMEN CENTRAL LINE IN THE RT SUBCLAVIAN. SHGE APPEARS COMFORTABLE.
[2022-06-05] MEDS: ATORVASTATIN 80 MG TAB PO SCH (21:21)
[2022-06-06] VITALS (24 sets, daily range): BP systolic 100–144; BP diastolic 46–87
[2022-06-06] MEDS: GAUZE TP SCH ×2 (01:00→13:00)
[2022-06-06] MEDS: Z-GUARD PASTE TP SCH ×2 (01:42→13:00)
[2022-06-06] MEDS: THERAHONEY GEL 42.5 GM TP SCH ×2 (01:42→13:00)
[2022-06-06] MEDS: ACETAMINOPHEN 325 MG TAB PO PRN (01:49)
--- NOTE | 2022-06-06 02:11 | NUR ---
LAST NOTE ON BLOOD SUGAR MEANT FOR PT CHO.
[2022-06-06] MEDS: MORPHINE SULFATE 2 MG/ML SYR IVP PRN ×2 (03:27→10:41)
[2022-06-06] MEDS: PIPERACILLIN/TAZOBACTAM 2.25 GM in DEXTROSE 5% 50 ML IV SCH ×2 (05:08→13:00)
[2022-06-06] MEDS: MIDODRINE 5 MG TAB PO SCH ×3 (06:25→18:02)
[2022-06-06 06:50] LABS: BASOPHILS % (AUTO) 0.3 % (0.0-2.0); EOSINOPHILS # (AUTO) 0.1 K/uL (0-0.4); EOSINOPHILS % (AUTO) 1.3 % (0.0-4.0); HEMATOCRIT 24.7 % (36-48); HEMOGLOBIN 8.3 g/dL (12.0-16.0); LYMPHOCYTES # (AUTO) 0.8 K/uL (2.5-16.5); LYMPHOCYTES % (AUTO) 8.6 % (20.5-51.1); MEAN CORPUSCULAR HEMOGLOBIN 32 pg (27-31); MEAN CORPUSCULAR HGB CONC 34 g/dL (33-37); MEAN CORPUSCULAR VOLUME 96.4 fL (80-94); MONOCYTES # (AUTO) 0.9 K/uL (0.8-1.0); MONOCYTES % (AUTO) 10.6 % (1.7-9.3); NEUTROPHILS % (AUTO) 79.2 % (42.2-75.2); PLATELET COUNT (AUTO) 286 K/uL (140-450); RED BLOOD CELL COUNT(AUTO) 2.56 MIL/uL (4.20-5.40); RED CELL DISTRIBUTION WIDTH 19.1 % (11.6-13.7); WHITE BLOOD COUNT (AUTO) 8.8 K/uL (4.8-10.8)
[2022-06-06 07:01] LABS: ANION GAP 14.8 (8-16); CARBON DIOXIDE 27.3 mmol/L (21-32); CHLORIDE 107 mmol/L (98-107); CREATININE 2.6 mg/dL (0.6-1.3); GLUCOSE 104 mg/dL (74-106); POTASSIUM 4.1 mmol/L (3.5-5.1); SODIUM SERUM 145 mmol/L (136-145)
[2022-06-06 07:07] LABS: UREA NITROGEN, BLOOD 79 mg/dL (7-18)
--- NOTE | 2022-06-06 07:13 | NUR ---
LAB CALLED A CRITICAL VALUE OF CREATININE2.9 AND BUN 79. REPORT TO ONCOMING RN.
[2022-06-06 07:15] LABS: MAGNESIUM 1.9 mg/dL (1.8-2.4); PHOSPHORUS 2.8 mg/dL (2.5-4.9)
--- NOTE | 2022-06-06 07:20 | NUR ---
RECEIVED REPORT FROM PROGRAM OFFICER HELDER LATHAM FOR CONTINUITY OF CARE. PT APHASIC BUT ABLE TO ANSWER YES OR NO QUESTIONS. SEEMS TO UNDERSTAND TEACHINGS. 2L NC, RESPIRATIONS EVEN AND UNLABORED. A FIB ON MONITOR, TACHYCARDIA HR 100-137. TRIPLE LUMEN CENTRAL LINE TO R SUBCLAVIAN INFUSING NS TKO 5 ML/HR. PEG TUBE IN PLACE INFUSING NEPRO TUBE FEED AT 45 ML/HR, 50 ML WATER FLUSH Q8H. RESIDUAL 5 ML. F/C TO GRAVITY DRAINING CLEAR LIGHT YELLOW URINE. GENERALIZED WEAKNESS, NOTABLE R SIDE DEFICIT. STANDARD PRECAUTION, CALL LIGHT WITHIN REACH, BED IN LOWEST POSITION.
[2022-06-06] MEDS: METOCLOPRAMIDE 10 MG/10 ML SYRP UDC GT SCH ×3 (07:56→16:42)
[2022-06-06] MEDS: FERROUS SULFATE 300 MG/5 ML UDC GT SCH ×3 (08:02→16:42)
[2022-06-06] MEDS: PANTOPRAZOLE 40 MG INJ VIAL IVP SCH (08:03)
[2022-06-06] MEDS: FUROSEMIDE 40 MG/4 ML VIAL IVP SCH ×2 (08:03→22:11)
[2022-06-06] MEDS: AMIODARONE 200 MG TAB PO SCH (08:03)
[2022-06-06] MEDS: cilostazoL 100 MG TAB PO SCH ×2 (08:03→22:10)
[2022-06-06] MEDS: DEXTROSE 5% 1,000 ML IV SCH (08:50)
--- NOTE | 2022-06-06 08:50 | NUR ---
SEEN AND EXAMINED BY DR. SANDERSON.
--- NOTE | 2022-06-06 09:01 | NUR ---
SEEN AND EXAMINED BY DR. HOANG. ADVISED TO MONITOR PT AT LEAST ONE MORE DAY IN ICU BEFORE DOWNGRADE TO TELE.
--- NOTE | 2022-06-06 11:40 | NUR ---
SON AT BEDSIDE. UPDATED ON POC, NO FURTHER QUESTIONS AT THIS TIME.
--- NOTE | 2022-06-06 12:40 | NUR ---
SEEN AND EXAMINED BY DR. BANKS. ORDERS RECEIVED.
--- NOTE | 2022-06-06 13:15 | NUR ---
MODERATE SIZE, BROWN BM. CLEANED, TURNED, REPOSITIONED. WOUND CARE DONE. CLEANSED WITH SKINTEGRITY, CHANGED SACRAL DRESSING. PHARMACY STATED THEY ARE ON BACK-ORDER FOR THERA-HONEY. SEE WOUND ASSESSMENT. Addendum: 06/06/22 at 1644 by Veronica Owusu RN FOUND THERA-HONEY AT BEDSIDE. APPLIED TO WOUNDS.
--- NOTE | 2022-06-06 13:55 | NUR ---
INCREASED TUBE FEED FREE WATER FLUSH TO [address] BANKS.
--- NOTE | 2022-06-06 14:12 | NUR ---
06/06/22 RD FOLLOW UP COMPLETED PLEASE REFER TO NUTRITION ASSESSMENT UNDER CARE ACTIVITY FOR ESTIMATED NUTRITIONAL NEEDS. 1. CONTINUE WITH NEPRO 20 ML/HR GOAL RATE 45 ML/HR + 50 ML FREE H2O FLUSH Q8H + PROSOURCE BID 2. IF PT IS EXTUBATED AND PASSES SWALLOW EVAL RECOMMEND RENAL DIET PER SLT RECOMMENDATIONS FOR TEXTURE MODIFICATIONS, PROSOURCE BID, AND NEPRO 1X/D, TOLERATED 3. RD TO FOLLOW-UP 2-3 DAYS, HIGH RISK REVIEWED BY DIAN CARLIN RD
--- NOTE | 2022-06-06 18:15 | NUR ---
GAVE PROSOURCE VIA [employer]. PT TOLERATED WELL.
--- NOTE | 2022-06-06 19:20 | NUR ---
ENDORSED REPORT TO ACID PUMP OPERATOR RN FOR CONTINUITY OF CARE.
[2022-06-06] MEDS: ATORVASTATIN 80 MG TAB PO SCH (22:09)
[2022-06-07] VITALS (13 sets, daily range): BP systolic 90–162; BP diastolic 52–99
[2022-06-07] MEDS: DEXTROSE 5% 1,000 ML IV SCH (02:01)
[2022-06-07] MEDS: THERAHONEY GEL 42.5 GM TP SCH ×2 (02:01→13:51)
[2022-06-07] MEDS: GAUZE TP SCH ×2 (02:02→13:51)
[2022-06-07] MEDS: Z-GUARD PASTE TP SCH ×2 (02:02→13:52)
[2022-06-07] MEDS: MIDODRINE 5 MG TAB PO SCH ×3 (02:03→19:09)
[2022-06-07 05:58] LABS: BASOPHILS % (AUTO) 0.3 % (0.0-2.0); EOSINOPHILS # (AUTO) 0.1 K/uL (0-0.4); EOSINOPHILS % (AUTO) 1.5 % (0.0-4.0); HEMATOCRIT 24.8 % (36-48); HEMOGLOBIN 7.9 g/dL (12.0-16.0); LYMPHOCYTES # (AUTO) 0.9 K/uL (2.5-16.5); MEAN CORPUSCULAR HEMOGLOBIN 32 pg (27-31); MEAN CORPUSCULAR HGB CONC 32 g/dL (33-37); MEAN CORPUSCULAR VOLUME 98.8 fL (80-94); MONOCYTES # (AUTO) 0.9 K/uL (0.8-1.0); MONOCYTES % (AUTO) 10.1 % (1.7-9.3); NEUTROPHILS % (AUTO) 78.1 % (42.2-75.2); PLATELET COUNT (AUTO) 249 K/uL (140-450); RED BLOOD CELL COUNT(AUTO) 2.51 MIL/uL (4.20-5.40); RED CELL DISTRIBUTION WIDTH 19.8 % (11.6-13.7); WHITE BLOOD COUNT (AUTO) 8.9 K/uL (4.8-10.8)
[2022-06-07 06:07] LABS: ANION GAP 13.6 (8-16); CARBON DIOXIDE 27.6 mmol/L (21-32); CHLORIDE 103 mmol/L (98-107); CREATININE 2.9 mg/dL (0.6-1.3); GLUCOSE 110 mg/dL (74-106); POTASSIUM 4.2 mmol/L (3.5-5.1); SODIUM SERUM 140 mmol/L (136-145)
[2022-06-07 06:18] LABS: UREA NITROGEN, BLOOD 86 mg/dL (7-18)
[2022-06-07] MEDS: METOCLOPRAMIDE 10 MG/10 ML SYRP UDC GT SCH ×3 (06:30→17:47)
--- NOTE | 2022-06-07 07:20 | NUR ---
FOUND PT TO HAVE CLEAR SECRETIONS FROM THE MOUTH WHICH SATURATED THE UPPER PORTION OF THE GOWN. SATURATIONS IN THE MID 80'S. CALLED RT, WHO CAME TO BEDSIDE TO ASSESS PT. THEY ADDED HUMIDIFICATION TO THE OXYGEN. 6L NC. SATURATION NOW IN THE LOW 90'S. Addendum: 06/07/22 at 0840 by Veronica Owusu RN TOOK BLOOD GLUCOSE, WHICH WAS 111. NO FURTHER INTERVENTION NEEDED REGARDING BLOOD GLUCOSE.
--- NOTE | 2022-06-07 07:32 | NUR ---
RECEIVED REPORT FROM STOPE MINER RN ALMITA FOR CONTINUITY OF CARE. PT APHASIC BUT ANSWERS YES OR NO QUESTIONS. 6L NC WITH HUMIDIFIER, RESPIRATIONS EVEN. SATTING 97%. A FIB ON MONITOR. TRIPLE LUMEN CENTRAL LINE TO R SUBCLAVIAN INFUSING D5W AT 60 ML/HR. PEG TUBE IN PLACE INFUSING NEPRO TUBE FEED AT 45 ML/HR, 250 ML WATER FLUSH Q6H. RESIDUAL 3 ML. F/C TO GRAVITY DRAINING CLEAR LIGHT YELLOW URINE. GENERALIZED WEAKNESS, NOTABLE R SIDE DEFICIT. ABLE TO MOVE LEFT ARM. STANDARD PRECAUTION, CALL LIGHT WITHIN REACH, BED IN LOWEST POSITION.
--- NOTE | 2022-06-07 08:00 | NUR ---
SEEN AND EXAMINED BY DR. ROBBINS.
[2022-06-07] MEDS: FERROUS SULFATE 300 MG/5 ML UDC GT SCH ×3 (08:06→17:47)
[2022-06-07] MEDS: FUROSEMIDE 40 MG/4 ML VIAL IVP SCH (08:06)
[2022-06-07] MEDS: cilostazoL 100 MG TAB PO SCH ×2 (08:06→21:42)
[2022-06-07] MEDS: AMIODARONE 200 MG TAB PO SCH (08:07)
[2022-06-07] MEDS: PANTOPRAZOLE 40 MG INJ VIAL IVP SCH (08:07)
--- NOTE | 2022-06-07 08:15 | NUR ---
XRAY AT BEDSIDE.
[2022-06-07] MEDS ORDERED: FUROSEMIDE 20 MG/2 ML VIAL IVP SCH (09:35)
--- NOTE | 2022-06-07 10:10 | NUR ---
RECIEVED PT FROM ICU , AWAKE , NOT IN ACUTE DISTRESS , W/ O2 AT 6LPM/NC , O2 SAT WNL , PICC LINE INTACT AND PATENT . W/ WOUNDS - ON SACRAL , R AND L LEGS , FOOT , G TUBE - WELL TOLERATED , ON TELE MONITOR , WILL CONT. TO MONITOR . Addendum: 06/07/22 at 2004 by Silva Galvez RN THE TIME OF THE ABOVE NURSES NOTE IS AND ERROR ENTRY , INSTEAD OF 1210 - [id number] Addendum: 06/07/22 at 2038 by Silva Galvez RN FEED RESIDUAL 20ML
--- NOTE | 2022-06-07 11:50 | NUR ---
ENDORSED TELEPHONE REPORT TO MIGUELANGEL PENDLETON FOR CONTINUITY OF CARE.
--- NOTE | 2022-06-07 12:08 | NUR ---
TRANSFERRED PT TO TELE BED 123B.
--- NOTE | 2022-06-07 14:00 | NUR ---
ROUNDS , NO S/SX OF ACUTE DISTRESS NOTED , ON TELE MONITOR
--- NOTE | 2022-06-07 17:00 | NUR ---
BP 117/62 , HR 112
[2022-06-07] MEDS: DILTIAZEM 30 MG TAB PO SCH ×2 (17:50→21:40)
--- NOTE | 2022-06-07 19:30 | NUR ---
RECEIVED PATIENT FROM AM NURSE FOR CONTINUITY OF CARE.PT IS STABLE
--- NOTE | 2022-06-07 19:30 | NUR ---
ENDORSED - PT - STABLE .
[2022-06-07] MEDS: FUROSEMIDE 20 MG/2 ML VIAL IVP SCH (21:39)
[2022-06-07] MEDS: ATORVASTATIN 80 MG TAB PO SCH (21:41)
[2022-06-07] MEDS: APIXABAN 2.5 MG TAB PO SCH (21:44)
[2022-06-08] VITALS: BP 106/58
[2022-06-08] MEDS: GAUZE TP SCH ×2 (00:59→12:08)
--- NOTE | 2022-06-08 01:00 | NUR ---
PATIENT ASLEEP,BREATHING EVEN AND UNLABORED,NO DISTRESS NOTED
[2022-06-08] MEDS: THERAHONEY GEL 42.5 GM TP SCH ×2 (01:01→12:08)
[2022-06-08] MEDS: Z-GUARD PASTE TP SCH ×2 (01:03→12:08)
[2022-06-08 04:00] VITALS: BP 120/59
[2022-06-08] MEDS: DILTIAZEM 30 MG TAB PO SCH ×3 (05:08→20:47)
[2022-06-08] MEDS: MIDODRINE 5 MG TAB PO SCH ×2 (06:37→12:07)
[2022-06-08] MEDS: METOCLOPRAMIDE 10 MG/10 ML SYRP UDC GT SCH ×3 (06:52→16:18)
[2022-06-08] MEDS: FERROUS SULFATE 300 MG/5 ML UDC GT SCH ×3 (08:04→16:18)
[2022-06-08] MEDS: FUROSEMIDE 20 MG/2 ML VIAL IVP SCH ×2 (08:04→22:13)
[2022-06-08] MEDS: PANTOPRAZOLE 40 MG INJ VIAL IVP SCH (08:04)
[2022-06-08] MEDS: APIXABAN 2.5 MG TAB PO SCH ×2 (08:05→20:46)
[2022-06-08] MEDS: AMIODARONE 200 MG TAB PO SCH (08:05)
[2022-06-08] MEDS: cilostazoL 100 MG TAB PO SCH ×2 (08:06→20:47)
[2022-06-08 09:00] LABS: BASOPHILS % (AUTO) 0.5 % (0.0-2.0); EOSINOPHILS # (AUTO) 0.1 K/uL (0-0.4); EOSINOPHILS % (AUTO) 1.9 % (0.0-4.0); HEMATOCRIT 22.9 % (36-48); HEMOGLOBIN 7.7 g/dL (12.0-16.0); LYMPHOCYTES # (AUTO) 0.6 K/uL (2.5-16.5); LYMPHOCYTES % (AUTO) 8.3 % (20.5-51.1); MEAN CORPUSCULAR HEMOGLOBIN 33 pg (27-31); MEAN CORPUSCULAR HGB CONC 34 g/dL (33-37); MEAN CORPUSCULAR VOLUME 96.5 fL (80-94); MONOCYTES # (AUTO) 0.9 K/uL (0.8-1.0); MONOCYTES % (AUTO) 11.6 % (1.7-9.3); NEUTROPHILS # (AUTO) 6.1 K/uL (1.8-7.7); NEUTROPHILS % (AUTO) 77.7 % (42.2-75.2); PLATELET COUNT (AUTO) 236 K/uL (140-450); RED BLOOD CELL COUNT(AUTO) 2.37 MIL/uL (4.20-5.40); RED CELL DISTRIBUTION WIDTH 19.4 % (11.6-13.7); WHITE BLOOD COUNT (AUTO) 7.8 K/uL (4.8-10.8)
[2022-06-08 09:13] LABS: ANION GAP 13.5 (8-16); CARBON DIOXIDE 26.6 mmol/L (21-32); CHLORIDE 100 mmol/L (98-107); CREATININE 3.5 mg/dL (0.6-1.3); GLUCOSE 131 mg/dL (74-106); POTASSIUM 4.1 mmol/L (3.5-5.1); SODIUM SERUM 136 mmol/L (136-145)
[2022-06-08 09:22] LABS: UREA NITROGEN, BLOOD 99 mg/dL (7-18)
--- NOTE | 2022-06-08 09:25 | NUR ---
Reported to Dr. Jerez critical lab value from lab BUN 99 Cr 3.5.
--- NOTE | 2022-06-08 10:32 | NUR ---
Per Dr. Sweeney called patient family member and left message. Patient will need to start dialysis and have temporary catheter. Addendum: 06/08/22 at 1057 by Agency Nurse 23, RN RN Called again Ariella and in addition called Jaylon calderon. Still no answer.
[2022-06-08 11:50] LABS: PHOSPHORUS 3.8 mg/dL (2.5-4.9)
--- NOTE | 2022-06-08 15:15 | NUR ---
06/08/22 RD FOLLOW UP COMPLETED PLEASE REFER TO NUTRITION ASSESSMENT UNDER CARE ACTIVITY FOR ESTIMATED NUTRITIONAL NEEDS. 1. CONTINUE WITH NEPRO @20 ML/HR WITH GOAL RATE OF 45 ML/HR + 50 ML FREE H2O FLUSH Q8H 2. RECOMMENDED PROSOURCE BID FOR PRESSURE INJURY NUTRITION THERAPY 3. RD TO FOLLOW-UP 3-5 DAYS, MODERATE RISK REVIEWED BY DIAN CARLIN RD
[2022-06-08 16:27] VITALS: BP 104/45
--- NOTE | 2022-06-08 18:11 | NUR ---
Patient's daughter, Ariella Kern, called back regarding consent for dialysis. She does not know if her mother absolutely needs it given her complex condition and wants to speak with the doctor before consent. She said she will be at bedside early tomorrow. Dr. Sweeney is aware and said Dr. Ramesh will be covering for the weekend and he will relay the message to Dr. Ramesh. Addendum: 06/08/22 at 1818 by Agency Nurse 23, HELDER RN Dr. Sweeney called again saying he will call and talk with daughter right now since tomorrow's doctor will not know about patient's condition. Texted Ariella Kern's , daughter, number to Dr. Sweeney.
--- NOTE | 2022-06-08 19:30 | NUR ---
RECEIVED BEDSIDE REPORT FROM MIK PENDLETON, PATIENT WAS IN PAIN AND TOOK NURSE'S HAND TO GESTURE MEDICATION. AM SHIFT NURSE TO CARE OF PAIN PRN PRIOR TO LEAVING. PATIENT CHEST IS RISING AND FALLING WITHOUT EFFORT. NASAL CANNULA ON AT 4 LITERS. GRANDDAUGHTER AT BEDSIDE FOR COMFORT AND SUPPORT. SIDE RAILS UP X 3 FOR SAFETY AND COMFORT. PRICE DRAINAGE NOTED DARK BROWNISH RED AND MINIMAL AMOUNT. DR BANKS WANTS TO START DAILYSIS AND HAS NOT SPOKEN WITH PATIENT DAUGHTER. NURSING WILL FOLLOW WITH DAUGHTER AND MD. CALL LIGHT WITHIN REACH FOR MENTAL STIMULATION OF THE TV AND ASSISTANCE. PATIENT OBSERVED MOVEMENTS ARE SLOW AND DELAYED SO NURSING WILL FREQUENT THE ROOM FOR ANTICIPATED NEEDS/WANTS. PATIENT KEPT CLEAN AND DRY. [id number]
[2022-06-08 20:00] VITALS: BP 117/56
--- NOTE | 2022-06-08 20:00 | NUR ---
Patient's Plan of Care was discussed and reviewed with MANAGER SCIENCE: MAGDA MENDIOLA
--- NOTE | 2022-06-08 20:06 | NUR ---
SPOKE WITH PATIENT DAUGHTER (MIGEL CHRISTOPHER) AND GRAND DAUGHTER AT BEDSIDE, REGARDING MD ORDERS FOR DIALYSIS. UNABLE TO SPEAK WITH THE MD. SHE WILL BE IN TOMORROW MORNING TO SIGN CONSENT. DURING THE CONVERSATION ANS THE PATIENT SHOOK HER HEAD IN AGREEMENT THAT SHE WOULD LIKE TO HAVE DIALYSIS. [id number]
[2022-06-08] MEDS: ATORVASTATIN 80 MG TAB PO SCH (20:47)
--- NOTE | 2022-06-08 21:20 | NUR ---
VERIFIED THAT IS WAS OK TO GIVE ALL CARDIAC AND BLOOD PRESSURE MEDICATIONS WITH BLOOD PRESSURE NOTED AT 117/56 AND HEART RATE 114. NURSING NOTED NO ADVERSE REACTION AND NO CHANGES OF HYPOTENSION AT THIS TIME. SIDE RAILS UP CALL LIGHT WITHIN REACH. [id number]
--- NOTE | 2022-06-08 22:29 | NUR ---
SPOKE WITH DR BANKS AND NEW ORDERS FOR DR OCHOA TO CONSULTATION AN TEMPORARY DIALYSIS CATH. IN DR BANKS'S ABSENCE TOMORROW, DR NUÑEZ WILL SIGN THE CONSENT TO BEGIN DIALYSIS. [id number]
[2022-06-09] VITALS: BP 101/42
[2022-06-09] MEDS: MORPHINE SULFATE 2 MG/ML SYR IVP PRN (00:26)
--- NOTE | 2022-06-09 01:35 | NUR ---
PATIENT IS CURRENTLY ASLEEP. PRIOR WAS GIVEN PRN FOR PAIN TO HER BACK. PATIENT TOLERATED IT WELL. HEAD OF BED AT [place]I [place] FOR COMFORT AND ASPIRATION PREVENTION. SIDE RAILS UP X 3. CALL LIGHT WITHIN REACH FOR MENTAL STIMULATION. NURSING WILL FREQUENT ROOM FOR ANTICIPATED NEEDS. [email or web address]
--- NOTE | 2022-06-09 03:45 | NUR ---
PATIENT IS CURRENTLY ASLEEP. HEAD OF BED AT [place]I [place] FOR COMFORT AND ASPIRATION PREVENTION. SIDE RAILS UP X 3. CALL LIGHT WITHIN REACH FOR MENTAL STIMULATION. NURSING WILL FREQUENT ROOM FOR ANTICIPATED NEEDS. [email or web address]
[2022-06-09 04:00] VITALS: BP 123/71
--- NOTE | 2022-06-09 05:53 | NUR ---
PATIENT HAS HAD ALL HER MEDICATION FOR THE EVENING SHIFT NO NOTED SIDE EFFECT AND TOLERATED IT WELL. CONSENT FOR TEMPORARY DIALYSIS CATH IS IN THE CHART READY FOR SIGNATURE FROM DAUGHTER AND MD. AM SHIFT WILL BE ENDORSED THE NEEDS FOR THE PATIENT TO HAVE CONTINUED CARE AND ADDRESSED ISSUES IN CARE. [email or web address]
[2022-06-09 05:58] LABS: BASOPHILS % (AUTO) 0.3 % (0.0-2.0); EOSINOPHILS # (AUTO) 0.1 K/uL (0-0.4); EOSINOPHILS % (AUTO) 1.8 % (0.0-4.0); HEMATOCRIT 24.3 % (36-48); LYMPHOCYTES # (AUTO) 0.7 K/uL (2.5-16.5); LYMPHOCYTES % (AUTO) 9.9 % (20.5-51.1); MEAN CORPUSCULAR HEMOGLOBIN 32 pg (27-31); MEAN CORPUSCULAR HGB CONC 33 g/dL (33-37); MEAN CORPUSCULAR VOLUME 96.8 fL (80-94); MONOCYTES # (AUTO) 0.8 K/uL (0.8-1.0); MONOCYTES % (AUTO) 11.1 % (1.7-9.3); NEUTROPHILS # (AUTO) 5.7 K/uL (1.8-7.7); NEUTROPHILS % (AUTO) 76.9 % (42.2-75.2); PLATELET COUNT (AUTO) 240 K/uL (140-450); RED BLOOD CELL COUNT(AUTO) 2.51 MIL/uL (4.20-5.40); RED CELL DISTRIBUTION WIDTH 19.5 % (11.6-13.7); WHITE BLOOD COUNT (AUTO) 7.5 K/uL (4.8-10.8)
[2022-06-09 06:30] LABS: ANION GAP 11.3 (8-16); CARBON DIOXIDE 28.7 mmol/L (21-32); CHLORIDE 101 mmol/L (98-107); CREATININE 3.9 mg/dL (0.6-1.3); GLUCOSE 136 mg/dL (74-106); SODIUM SERUM 137 mmol/L (136-145)
[2022-06-09 06:34] LABS: UREA NITROGEN, BLOOD 106 mg/dL (7-18)
--- NOTE | 2022-06-09 06:54 | NUR ---
SPOKE WITH DR JAMA REGARDING CRITICAL LABS VALUES OF BUN AT 106 AND CREATININE 3.9. NO NEW ORDERS AT THIS TIME BECAUSE FO THE DR OCHOA CONSULT ORDERED. [email or web address]
--- NOTE | 2022-06-09 07:15 | NUR ---
PATIENT WAS ENDORSED TO PIO RN, PATIENT WAS STABLE AT THE CHANGE OF SHIFT. NURSE IS AWARE FOR POSSIBLE DIALYSIS AND CONSENT NEEDED FOR TEMPORARY DIALYSIS CATH. [email or web address]
--- NOTE | 2022-06-09 07:25 | NUR ---
REPORT RECEIVED FROM NIGHT RN, ALL CARES ASSUMED.
[2022-06-09 08:00] VITALS: BP 95/44
[2022-06-09] MEDS: FUROSEMIDE 20 MG/2 ML VIAL IVP SCH ×2 (09:08→21:00)
[2022-06-09] MEDS: PANTOPRAZOLE 40 MG INJ VIAL IVP SCH (09:08)
[2022-06-09] MEDS: cilostazoL 100 MG TAB PO SCH ×2 (09:08→23:01)
[2022-06-09] MEDS: APIXABAN 2.5 MG TAB PO SCH ×2 (09:08→21:00)
[2022-06-09] MEDS: AMIODARONE 200 MG TAB PO SCH (09:08)
[2022-06-09] MEDS: FERROUS SULFATE 300 MG/5 ML UDC GT SCH ×3 (09:08→16:53)
[2022-06-09] MEDS: METOCLOPRAMIDE 10 MG/10 ML SYRP UDC GT SCH ×2 (11:30→16:53)
[2022-06-09 12:00] VITALS: BP 97/38
[2022-06-09] MEDS: Z-GUARD PASTE TP SCH (13:08)
[2022-06-09] MEDS: MIDODRINE 5 MG TAB PO SCH ×2 (13:08→18:44)
[2022-06-09] MEDS: THERAHONEY GEL 42.5 GM TP SCH (13:08)
[2022-06-09] MEDS: DILTIAZEM 30 MG TAB PO SCH ×2 (13:10→22:59)
[2022-06-09] MEDS: GAUZE TP SCH (13:30)
[2022-06-09 16:00] VITALS: BP 107/51
--- NOTE | 2022-06-09 19:30 | NUR ---
RECEIVED REPORT FROM AM SHIFT RN. PT IS TRACH TO VENT. FULL CODE, ALLERGIES TO IODINE. PT IS ON TUBE FEEDING VIA G-TUBE. PT HAS A LIJ KRIS CATH AND A R SUBCLAVIAN CENTRAL LINE. PT HAS A PRICE CATHETER INTACT AND SECURE DRAINING VIA GRAVITY DARK VASILE URINE. PT IS GOING TO RECEIVE 1ST DIALYSIS TREATMENT TONIGHT. PT IS WITH WOUNDS. ALL SAFETY MEASURES IN PLACE, CALL LIGHT IN REACH, WILL CONTINUE TO MONITOR PT.
--- NOTE | 2022-06-09 19:38 | NUR ---
REPORT GIVEN TO NIGHT RN, ALL CARES ENDORSED.
--- NOTE | 2022-06-09 19:45 | NUR ---
SECURITY CHECKER HERE STARTING DIALYSIS ON PATIENT.
[2022-06-09 20:00] VITALS: BP 108/53
[2022-06-09] MEDS ORDERED: ALBUMIN HUMAN 25% 50 ML IV ONE ×2 (20:14→20:16)
[2022-06-09] MEDS ORDERED: ALBUMIN HUMAN 25% 100 ML IV SCH (20:45)
--- NOTE | 2022-06-09 22:15 | NUR ---
DIALYSIS COMPLETED OUTPUT WAS 1,500 ML
[2022-06-09] MEDS: ATORVASTATIN 80 MG TAB PO SCH (23:01)
[2022-06-10 00:25] VITALS: BP 116/55
[2022-06-10] MEDS: GAUZE TP SCH ×2 (00:26→12:59)
[2022-06-10] MEDS: Z-GUARD PASTE TP SCH ×2 (00:28→12:59)
[2022-06-10] MEDS: THERAHONEY GEL 42.5 GM TP SCH ×2 (00:28→12:59)
[2022-06-10 04:00] VITALS: BP 118/53
[2022-06-10] MEDS: DILTIAZEM 30 MG TAB PO SCH ×3 (05:43→21:00)
[2022-06-10 06:27] LABS: ANION GAP 11.8 (8-16); CARBON DIOXIDE 29.7 mmol/L (21-32); CHLORIDE 101 mmol/L (98-107); GLUCOSE 134 mg/dL (74-106); POTASSIUM 3.5 mmol/L (3.5-5.1); SODIUM SERUM 139 mmol/L (136-145)
[2022-06-10] MEDS: MIDODRINE 5 MG TAB PO SCH ×3 (06:27→21:29)
[2022-06-10] MEDS: METOCLOPRAMIDE 10 MG/10 ML SYRP UDC GT SCH ×3 (06:27→16:05)
[2022-06-10 06:35] LABS: UREA NITROGEN, BLOOD 73 mg/dL (7-18)
[2022-06-10 06:41] LABS: BASOPHILS % (AUTO) 0.3 % (0.0-2.0); EOSINOPHILS # (AUTO) 0.1 K/uL (0-0.4); EOSINOPHILS % (AUTO) 1.5 % (0.0-4.0); HEMATOCRIT 21.5 % (36-48); HEMOGLOBIN 7.3 g/dL (12.0-16.0); LYMPHOCYTES # (AUTO) 0.5 K/uL (2.5-16.5); LYMPHOCYTES % (AUTO) 8.2 % (20.5-51.1); MEAN CORPUSCULAR HEMOGLOBIN 32 pg (27-31); MEAN CORPUSCULAR HGB CONC 34 g/dL (33-37); MEAN CORPUSCULAR VOLUME 94.4 fL (80-94); MONOCYTES # (AUTO) 0.8 K/uL (0.8-1.0); MONOCYTES % (AUTO) 12.5 % (1.7-9.3); NEUTROPHILS # (AUTO) 4.8 K/uL (1.8-7.7); NEUTROPHILS % (AUTO) 77.5 % (42.2-75.2); PLATELET COUNT (AUTO) 224 K/uL (140-450); RED BLOOD CELL COUNT(AUTO) 2.28 MIL/uL (4.20-5.40); RED CELL DISTRIBUTION WIDTH 18.8 % (11.6-13.7); WHITE BLOOD COUNT (AUTO) 6.2 K/uL (4.8-10.8)
--- NOTE | 2022-06-10 07:39 | NUR ---
REPORT GIVEN TO ILAN RN WHO ASSUMED TOTAL CARE OF THE PT.
[2022-06-10] MEDS: FUROSEMIDE 20 MG/2 ML VIAL IVP SCH ×2 (08:22→21:00)
[2022-06-10] MEDS: AMIODARONE 200 MG TAB PO SCH (08:22)
[2022-06-10] MEDS: PANTOPRAZOLE 40 MG INJ VIAL IVP SCH (08:22)
[2022-06-10] MEDS: cilostazoL 100 MG TAB PO SCH ×2 (08:22→21:29)
[2022-06-10] MEDS: FERROUS SULFATE 300 MG/5 ML UDC GT SCH ×3 (08:22→16:05)
[2022-06-10] MEDS: APIXABAN 2.5 MG TAB PO SCH ×2 (08:26→21:28)
[2022-06-10] MEDS: ALBUTEROL SULFATE/IPRATROPIU 3 ML SOL IH PRN ×2 (08:45→14:50)
--- NOTE | 2022-06-10 09:46 | NUR ---
Patient denies pain. RT came to check on patient.
--- NOTE | 2022-06-10 14:00 | NUR ---
WOUND CARE RE-EVALUATION NOTE: PATIENT LYING DOWN IN BED, NO DISTRESS. HAD NEWLY PLACED HD CATHETER, TO GET HD LATER TODAY. - RIGHT POSTERIOR LATERAL ULCER SLIGHT IMPROVEMENT, CONTINUES TO HAVE SLOUGH WOUND BED. SIZE REMAINS THE SAME. NO WORSENING OF THE WOUND. CONTINUE WITH CURRENT WOUND CARE MANAGEMENT REGIMEN. - RIGHT FOOT MULTIPLE UNSTAGEABLE WOUNDS REMAIN THE SAME, BLACK COLOR WOUND BED. NO WORSENING OR NEW WOUNDS NOTED. CONTINUE WITH CURRENT WOUND CARE REGIMEN. -SACRALCOCCYX WOUND REMAIN THE SAME. NO WORSENING OR NEW WOUNDS. CONTINUE WITH CURRENT WOUND CARE REGIMEN. POC DISCUSSED WITH PRIMARY RN. WILL FOLLOW-UP PATIENT Q7-10 DAYS AND PRN. PLEASE CONTACT WOUND CARE NURSE FOR ANY CONCERNS AND CHANGES IN WOUND CONDITION.
--- NOTE | 2022-06-10 14:02 | NUR ---
Cleaned and changed patient. Patient had small brown BM.
--- NOTE | 2022-06-10 14:15 | NUR ---
waistband setter lockstitch, Mark, came to change wounds. Called dialysis Ms. Torres to let her know patient has orders for dialysis today.
--- NOTE | 2022-06-10 16:51 | NUR ---
Patient's son, Jaylon, came to visit patient at the bedside. Asked patient's son to sign dialysis consent but he said he is not patient's POA. Said he will let patient's daughter Ariella know to come to hospital to sign dialysis consent. Patient's family member also wanted update about patient from MD. Texted Dr. Moran this and the number of Ariella's phone. Addendum: 06/10/22 at 1702 by Agency Nurse HELDER Pugh RN Ariella, through phone, said brother, Jaylon can sign on behalf of her for the dialysis consent.
[2022-06-10] MEDS: ACETAMINOPHEN 325 MG TAB PO PRN (16:54)
--- NOTE | 2022-06-10 17:16 | NUR ---
pottery decorator came to start today's dialysis session. Printed CBC, BMP, and order report for her.
[2022-06-10 17:20] VITALS: BP 102/65
--- NOTE | 2022-06-10 18:33 | NUR ---
Per sales data analyst, needed 2 5000 unit heparin to hep lock dialysis catheter.
--- NOTE | 2022-06-10 19:30 | NUR ---
RECEIVED REPORT FROM DAY SHIFT NURSE MIK. PATIENT IS A&O X2, APHASIC. PATIENT IS ON NC 4L. BREATHING IS NORMAL WITH SYMMETRICAL RISE AND FALL OF CHEST. IV IS A RIGHT CENTRAL SUBCLAVIAN TRIPLED LUMEN. PATIENT IS RUNNING NO FLUIDS. PATIENT ALSO HAS L IJ CATHETER FOR DIALYSIS. PATIENT IS CURRENTLY RECEIVING DIALYSIS. PATIENT IS ALSO ON ENTERAL FEEDING OF NEPRO 45ML/HR WITH WATER FLUSH OF 50 ML EVERY 8 HRS. BED IS IN LOWEST POSITION, WHEELS LOCKED, CALL LIGHT IN PLACE. WILL CONTINUE TO OBSERVE PATIENT.
[2022-06-10 20:00] VITALS: BP 104/40
--- NOTE | 2022-06-10 20:15 | NUR ---
OBTAINED 1999 VITALS. VITALS WERE: 98.5 TEMP, HR 114, BP 104/40, O2 92, RR 19. PATIENT IS NOW ON 2L NC. RT BEBO NOTED THAT SHE LOWERED PATIENT TO 2L AT 2003. DIALYSIS IS STILL BEING DONE. WILL CONTINUE TO OBSERVE PATIENT AND WILL ADMINISTER MEDICATIONS ONCE DIALYSIS HAS FINISHED.
[2022-06-10] MEDS: ATORVASTATIN 80 MG TAB PO SCH (21:28)
--- NOTE | 2022-06-10 21:40 | NUR ---
DIALYSIS HAS FINISHED AND DIALYSIS NURSE HAS LEFT. ADMINISTERED PATIENT'S 2100 MEDICATIONS. MIDODRINE WAS ALSO ADMINISTERED SINCE IT WAS NOT POSSIBLE TO ADMINISTER DURING ITS REGULAR TIME BECAUSE DIALYSIS WAS TAKING PLACE. PATIENT TOLERATED MEDICATIONS WELL. LASIX AND CARDIZEM WERE HELD SINCE PATIENT JUST HAD DIALYSIS DURING WHICH THEY REMOVED 2.6L. BED IS IN LOWEST POSITION, WHEELS LOCKED, CALL LIGHT IN REACH. WILL CONTINUE TO OBSERVE PATIENT.
--- NOTE | 2022-06-10 23:40 | NUR ---
OBTAINED 0000 VITALS. VITALS WERE: TEMP 98.6, HR 110, BP 131/65, O2 97, RR 19. PATIENT IS SLEEPING. BREATHING IS NORMAL WITH SYMMETRICAL RISE AND FALL OF CHEST. WILL CONTINUE TO OBSERVE PATIENT.
[2022-06-11] VITALS: BP 131/65
--- NOTE | 2022-06-11 02:00 | NUR ---
LOOKED IN ON PATIENT. PATIENT WAS SLEEPING. FEEDING WAS RUNNING. BREATHING WAS NORMAL WITH SYMMETRICAL RISE AND FALL OF CHEST. WILL CONTINUE TO OBSERVE PATIENT.
[2022-06-11] MEDS: GAUZE TP SCH ×2 (02:49→13:00)
[2022-06-11] MEDS: Z-GUARD PASTE TP SCH ×2 (02:50→13:00)
[2022-06-11] MEDS: THERAHONEY GEL 42.5 GM TP SCH ×2 (02:50→13:00)
[2022-06-11 04:00] VITALS: BP 126/64
--- NOTE | 2022-06-11 04:15 | NUR ---
OBTAINED 0400 VITALS. VITALS WERE: TEMP 98.0, HR 113, BP 126/64, O2 94, RR 19. PATIENT WAS AWAKE. PATIENT IS ON 2L NC. BREATHING IS NORMAL WITH SYMMETRICAL RISE AND FALL OF CHEST. WILL CONTINUE TO OBSERVE PATIENT.
--- NOTE | 2022-06-11 04:15 | NUR ---
EMPTIED 150ML URINE. URINE WAS DARK BROWN. WILL CONTINUE TO OBSERVE PATIENT.
[2022-06-11] MEDS: DILTIAZEM 30 MG TAB PO SCH ×3 (05:50→21:31)
--- NOTE | 2022-06-11 06:00 | NUR ---
GAVE 0500 MEDICATION VIA G-TUBE. PATIENT TOLERATED WELL. PATIENT WAS AWAKE. FEEDING WAS PUSHED FOR MED ADMINISTRATION AND THEN RESTARTED. BREATHING WAS NORMAL WITH SYMMETRICAL RISE AND FALL OF CHEST. WILL CONTINUE TO OBSERVE PATIENT.
[2022-06-11 06:33] LABS: BASOPHILS % (AUTO) 0.4 % (0.0-2.0); EOSINOPHILS # (AUTO) 0.1 K/uL (0-0.4); EOSINOPHILS % (AUTO) 1.6 % (0.0-4.0); HEMATOCRIT 22.8 % (36-48); HEMOGLOBIN 7.6 g/dL (12.0-16.0); LYMPHOCYTES # (AUTO) 0.6 K/uL (2.5-16.5); LYMPHOCYTES % (AUTO) 8.4 % (20.5-51.1); MEAN CORPUSCULAR HEMOGLOBIN 32 pg (27-31); MEAN CORPUSCULAR HGB CONC 33 g/dL (33-37); MEAN CORPUSCULAR VOLUME 95.2 fL (80-94); MONOCYTES % (AUTO) 13.6 % (1.7-9.3); NEUTROPHILS # (AUTO) 5.4 K/uL (1.8-7.7); PLATELET COUNT (AUTO) 231 K/uL (140-450); RED BLOOD CELL COUNT(AUTO) 2.39 MIL/uL (4.20-5.40); RED CELL DISTRIBUTION WIDTH 19.2 % (11.6-13.7); WHITE BLOOD COUNT (AUTO) 7.1 K/uL (4.8-10.8)
[2022-06-11 06:40] LABS: ANION GAP 9.5 (8-16); CARBON DIOXIDE 31.6 mmol/L (21-32); CHLORIDE 100 mmol/L (98-107); CREATININE 2.1 mg/dL (0.6-1.3); GLUCOSE 126 mg/dL (74-106); POTASSIUM 4.1 mmol/L (3.5-5.1); SODIUM SERUM 137 mmol/L (136-145); UREA NITROGEN, BLOOD 41 mg/dL (7-18)
[2022-06-11] MEDS: MIDODRINE 5 MG TAB PO SCH ×3 (07:19→20:21)
[2022-06-11] MEDS: METOCLOPRAMIDE 10 MG/10 ML SYRP UDC GT SCH ×4 (07:21→20:21)
--- NOTE | 2022-06-11 07:25 | NUR ---
MIDODRINE AND REGLAN WAS GIVEN TO PATIENT VIA G-TUBE. ONLY 5ML OF REGLAN WAS GIVEN, OTHER 5ML WAS WASTED. WILL ENDORSE CARE TO PATIENT.
--- NOTE | 2022-06-11 07:40 | NUR ---
ENDORSED CONTINUITY OF CARE TO DAY SHIFT NURSE GABRIELLE. PATIENT IS STABLE.
[2022-06-11 08:00] VITALS: BP 116/61
[2022-06-11] MEDS: PANTOPRAZOLE 40 MG INJ VIAL IVP SCH (09:00)
[2022-06-11] MEDS: FUROSEMIDE 20 MG/2 ML VIAL IVP SCH ×2 (09:00→21:31)
[2022-06-11] MEDS: cilostazoL 100 MG TAB PO SCH ×2 (09:00→21:32)
[2022-06-11 12:00] VITALS: BP 123/60
[2022-06-11] MEDS: FERROUS SULFATE 300 MG/5 ML UDC GT SCH ×3 (12:02→20:21)
[2022-06-11] MEDS: APIXABAN 2.5 MG TAB PO SCH ×2 (12:06→21:31)
[2022-06-11] MEDS: ACETAMINOPHEN 325 MG TAB PO PRN (12:07)
[2022-06-11] MEDS: AMIODARONE 200 MG TAB PO SCH (12:08)
[2022-06-11 16:00] VITALS: BP 100/39
[2022-06-11] MEDS ORDERED: DIGOXIN 0.25 MG/ML AMP IV ONE ×2 (18:45→20:16)
--- NOTE | 2022-06-11 19:30 | NUR ---
RECEIVED BEDSIDE REPORT FROM DAY SHIFT RN GABRIELLE FOR CONTINUITY OF CARE. PT IS ASLEEP. PT IS ON NC 2L SATING 94%. PT HAS LEFT IJ AND RIGHT TRIPLE LUMEN SUBCLAVIAN CATHETER. PT IS ON FEEDING WITH NEPHRO 1.2 AT 45 CC/HR WITH WATER FLUSH OF 50CC Q8H. PT HAS MULTIPLE WOUNDS ON COCCYX AND RIGHT LOWER LEG. PT HAS FC DRAINING DARK RED URINE. BED AT THE LOWEST POSITION. HEAD OF BED RAISED. WILL CONTINUE TO MONITOR THE PT.
[2022-06-11] MEDS ORDERED: DIGOXIN 0.125 MG/2.5 ML UDC ONE (19:52)
[2022-06-11 20:00] VITALS: BP 118/55
[2022-06-11] MEDS: ATORVASTATIN 80 MG TAB PO SCH (21:31)
--- NOTE | 2022-06-11 21:48 | NUR ---
SCHEDULE MEDS GIVEN. NO ADVERSE REACTION NOTED. WILL CONTINUE TO MONITOR THE PT.
[2022-06-12] VITALS: BP 128/44
[2022-06-12] MEDS ORDERED: DIGOXIN 0.25 MG TAB PO ONE ×2 (01:00→07:00)
[2022-06-12] MEDS: THERAHONEY GEL 42.5 GM TP SCH ×2 (01:39→12:05)
[2022-06-12] MEDS: Z-GUARD PASTE TP SCH ×2 (01:39→12:05)
[2022-06-12] MEDS: GAUZE TP SCH ×2 (01:39→12:04)
--- NOTE | 2022-06-12 01:41 | NUR ---
PT WAS CLEANED AND CHANGED. PT HAD MODERATE AMOUNT AND SOFT STOOL. PT TOLERATED CHANGING WELL. WILL CONTINUE TO MONITOR THE PT.
[2022-06-12 04:00] VITALS: BP 152/60
[2022-06-12] MEDS: DILTIAZEM 30 MG TAB PO SCH ×3 (04:40→20:27)
--- NOTE | 2022-06-12 04:50 | NUR ---
SCHEDULE MEDS GIVEN. NO ADVERSE REACTION NOTED. WILL CONTINUE TO MONITOR THE PT.
[2022-06-12 05:42] LABS: ANION GAP 8.7 (8-16); CARBON DIOXIDE 31.8 mmol/L (21-32); CHLORIDE 101 mmol/L (98-107); CREATININE 2.7 mg/dL (0.6-1.3); GLUCOSE 119 mg/dL (74-106); POTASSIUM 4.5 mmol/L (3.5-5.1); SODIUM SERUM 137 mmol/L (136-145); UREA NITROGEN, BLOOD 56 mg/dL (7-18)
[2022-06-12] MEDS: MIDODRINE 5 MG TAB PO SCH ×3 (06:13→18:15)
[2022-06-12 06:45] LABS: BASOPHILS % (AUTO) 0.6 % (0.0-2.0); EOSINOPHILS # (AUTO) 0.1 K/uL (0-0.4); EOSINOPHILS % (AUTO) 1.6 % (0.0-4.0); HEMATOCRIT 22.1 % (36-48); HEMOGLOBIN 7.5 g/dL (12.0-16.0); LYMPHOCYTES # (AUTO) 0.8 K/uL (2.5-16.5); LYMPHOCYTES % (AUTO) 10.5 % (20.5-51.1); MEAN CORPUSCULAR HEMOGLOBIN 32 pg (27-31); MEAN CORPUSCULAR HGB CONC 34 g/dL (33-37); MEAN CORPUSCULAR VOLUME 95.1 fL (80-94); MONOCYTES # (AUTO) 0.9 K/uL (0.8-1.0); MONOCYTES % (AUTO) 11.5 % (1.7-9.3); NEUTROPHILS # (AUTO) 5.9 K/uL (1.8-7.7); NEUTROPHILS % (AUTO) 75.8 % (42.2-75.2); PLATELET COUNT (AUTO) 228 K/uL (140-450); RED BLOOD CELL COUNT(AUTO) 2.32 MIL/uL (4.20-5.40); RED CELL DISTRIBUTION WIDTH 18.9 % (11.6-13.7); WHITE BLOOD COUNT (AUTO) 7.8 K/uL (4.8-10.8)
--- NOTE | 2022-06-12 07:36 | NUR ---
ENDORSED PT TO DAY SHIFT RN FOR CONTINUITY OF CARE. PT IS STABLE.
--- NOTE | 2022-06-12 07:38 | NUR ---
RECEIVED BEDSIDE REPORT FROM DUCT LAYER HELPER NURSE FOR CONTINUITY OF CARE. PT IS ASLEEP. PT IS ON NC 2L SATING 96%. PT HAS LEFT IJ KRIS CATHETER, RIGHT TRIPLE LUMEN SUBCLAVIAN CATHETER, RIGHT WRIST 22G SALINE LOCKED. PT IS ON FEEDING WITH NEPHRO 1.2 AT 45 CC/HR WITH WATER FLUSH OF 50CC Q8H. PT HAS MULTIPLE WOUNDS ON COCCYX AND RIGHT LOWER LEG. PT HAS FC DRAINING DARK RED URINE. FLACC 0. PLAN OF CARE DISCUSSED. SAFETY PRECAUTIONS IN PLACE. BED AT THE LOWEST POSITION. HEAD OF BED RAISED. WILL CONTINUE TO MONITOR THE PT.
[2022-06-12 08:00] VITALS: BP 130/47
[2022-06-12] MEDS: ALBUTEROL SULFATE/IPRATROPIU 3 ML SOL IH PRN (08:00)
[2022-06-12] MEDS: APIXABAN 2.5 MG TAB PO SCH (09:00)
[2022-06-12] MEDS: cilostazoL 100 MG TAB PO SCH (09:00)
--- NOTE | 2022-06-12 09:00 | NUR ---
DIALYSIS AT BEDSIDE PREPARING PT FOR DIALYSIS TREATMENT
[2022-06-12] MEDS: PANTOPRAZOLE 40 MG INJ VIAL IVP SCH (09:26)
[2022-06-12] MEDS: FERROUS SULFATE 300 MG/5 ML UDC GT SCH ×3 (09:27→16:36)
[2022-06-12] MEDS: FUROSEMIDE 20 MG/2 ML VIAL IVP SCH ×2 (09:27→20:27)
[2022-06-12] MEDS: AMIODARONE 200 MG TAB PO SCH (09:27)
--- NOTE | 2022-06-12 09:28 | NUR ---
NOTED BLOOD IN URINE. NOTIFIED MD AND RECEIVED ORDERS TO HOLD ELIQUIS AND CILOSTAZOL
[2022-06-12] MEDS ORDERED: ALBUMIN HUMAN 25% 100 ML IV SCH (11:00)
--- NOTE | 2022-06-12 11:13 | NUR ---
DC PLANNING: PATIENT HAS AN ORDER FOR CHAIR TIME OUTPATIENT HEMODIALYSIS AT [facility] FAXED THE REQUEST TO [phone]. CALLED [facility] SPOKE WITH LESLIE STATED SINCE PATIENT HAS NOT HAVE SECONDARY WILL DISCUSS WITH HER DAUGHTER TO ARRANGE TRANSPORT. HEP PANEL HAS NOT BEEN DONE NOTIFIED DR PEREZ ORDERED ONE AND AWAITING FOR RESULT. CM TO FOLLOW Addendum: 06/13/22 at 1535 by Kia Adair RN DC PLANNING CALLED [facility] SPOKE WITH JOHANNA STATED THEY REVIEWED THE PAPER AND ARRANGED OUT PT DIALYSIS ON SATURDAY, SATURDAY AND SATURDAY AT 1:30 PM Addendum: 06/13/22 at 1627 by Kia Adair RN DC PLANNING: PATIENT IS SCHEDULED FOR TUNNELED CATH TO BE PLACED BY DR OCHOA TOMORROW AND WILL HAVE DIALYSIS DC PLAN TO RETURN TO [facility] AFTER DIALYSIS. CM TO FOLLOW Addendum: 06/15/22 at 1252 by Kia Adair RN DC PLANNING: SPOKE WITH PT'S DAUGHTER EXPRESS THE CONCERN AND ISSUES REGARDING THE TRANSPORT TO DIALYSIS CENTER PT HAS NO SECONDARY, APPLIED 15 DAYS AGO AND MIGHT TAKE 30-45 DAYS HOWEVER THE COST IS 300$ PER TRIP AND CAN NOT AFFORD IT. CALLED [facility] TO DISCUSS LEFT A MESSAGE. CM TO FOLLOW
[2022-06-12] MEDS: METOCLOPRAMIDE 10 MG/10 ML SYRP UDC GT SCH ×2 (11:41→16:36)
[2022-06-12 12:00] VITALS: BP 94/37
--- NOTE | 2022-06-12 12:55 | NUR ---
PT COMPLETED DIALYSIS TREATMENT. 1.5 L OUT. PT VS IS STABLE. NO DISTRESS NOTED. WILL CONTINUE TO MONITOR.
--- NOTE | 2022-06-12 14:34 | NUR ---
06/12/22 RD FOLLOW UP COMPLETED PLEASE REFER TO NUTRITION ASSESSMENT UNDER CARE ACTIVITY FOR ESTIMATED NUTRITIONAL NEEDS. 1. CONTINUE WITH NEPRO @ 45 ML/HR + 50 ML FREE H2O FLUSH Q8H PLUS PROSOURCE TID. -MONITOR GASTRIC RESIDUAL. 2. RD TO FOLLOW-UP 3-5 DAYS, MODERATE RISK REVIEWED BY RONNY CARLIN RD
[2022-06-12 16:00] VITALS: BP 111/46
--- NOTE | 2022-06-12 16:40 | NUR ---
ALL SCHEDULED MEDS GIVEN. PT IS STABLE. NO DISTRESS NOTED. WILL CONTINUE TO MONITOR.
--- NOTE | 2022-06-12 19:40 | NUR ---
ENDORSED TO MANAGER ELECTRICAL NURSE FOR CONTINUITY OF CARE. PT IS STABLE.
--- NOTE | 2022-06-12 19:45 | NUR ---
RECEIVED BEDSIDE REPORT FROM DAY SHIFT NURSE FOR CONTINUITY OF CARE. PT IS AWAKE, ABLE TO ANSWER YES OR NO QUESTIONS. PT IS ON NC 2L SATING 97%. PT HAS LEFT IJ KRIS CATHETER, RIGHT CVP,RIGHT WRIST 22G SALINE LOCKED. PT IS ON FEEDING WITH NEPHRO 1.2 AT 45 CC/HR WITH WATER FLUSH OF 50CC Q8H. PT HAS MULTIPLE WOUNDS ON COCCYX AND RIGHT LOWER LEG. PT HAS FC DRAINING DARK RED URINE. FLACC 0. PLAN OF CARE DISCUSSED. ALL SAFETY PRECAUTIONS IN PLACE.HEAD OF BED RAISED. WILL CONTINUE TO MONITOR.
[2022-06-12 20:00] VITALS: BP 110/43
[2022-06-12] MEDS: ATORVASTATIN 80 MG TAB PO SCH (20:27)
--- NOTE | 2022-06-12 21:00 | NUR ---
SCHEDULED MEDICATIONS GIVEN. NO RESIDUAL NOTED ON GTUBE. ALL PRECAUTIONS IN PLACE. WILL CONTINUE TO MONITOR.
[2022-06-13] VITALS: BP 130/71
--- NOTE | 2022-06-13 | NUR ---
VITAL SIGNS TABLE. PT O2 SAT AT 96%. NO DISTRESS NOTED.ALL PRECAUTIONS IN PLACE. WILL CONTINUE TO MONITOR.
[2022-06-13] MEDS: Z-GUARD PASTE TP SCH ×2 (01:48→13:50)
[2022-06-13] MEDS: GAUZE TP SCH ×2 (01:48→13:50)
[2022-06-13] MEDS: THERAHONEY GEL 42.5 GM TP SCH ×2 (01:48→13:50)
--- NOTE | 2022-06-13 02:26 | NUR ---
PT ASLEEP.CHEST RISE AND FALL NOTED. NO DISTRESS NOTED. ALL PRECAUTIONS IN PLACE. WILL CONTINUE TO MONITOR.
[2022-06-13 04:00] VITALS: BP 111/47
[2022-06-13] MEDS: DILTIAZEM 30 MG TAB PO SCH ×3 (05:04→21:52)
[2022-06-13 05:31] LABS: BASOPHILS % (AUTO) 0.4 % (0.0-2.0); EOSINOPHILS # (AUTO) 0.1 K/uL (0-0.4); EOSINOPHILS % (AUTO) 1.5 % (0.0-4.0); HEMATOCRIT 23.7 % (36-48); HEMOGLOBIN 7.8 g/dL (12.0-16.0); LYMPHOCYTES # (AUTO) 0.8 K/uL (2.5-16.5); LYMPHOCYTES % (AUTO) 10.2 % (20.5-51.1); MEAN CORPUSCULAR HEMOGLOBIN 32 pg (27-31); MEAN CORPUSCULAR HGB CONC 33 g/dL (33-37); MEAN CORPUSCULAR VOLUME 96.7 fL (80-94); MONOCYTES # (AUTO) 0.9 K/uL (0.8-1.0); MONOCYTES % (AUTO) 11.3 % (1.7-9.3); NEUTROPHILS % (AUTO) 76.6 % (42.2-75.2); PLATELET COUNT (AUTO) 251 K/uL (140-450); RED BLOOD CELL COUNT(AUTO) 2.45 MIL/uL (4.20-5.40); RED CELL DISTRIBUTION WIDTH 19.5 % (11.6-13.7); WHITE BLOOD COUNT (AUTO) 7.9 K/uL (4.8-10.8)
[2022-06-13 05:48] LABS: ANION GAP 9.8 (8-16); CARBON DIOXIDE 29.5 mmol/L (21-32); CHLORIDE 103 mmol/L (98-107); CREATININE 2.3 mg/dL (0.6-1.3); GLUCOSE 104 mg/dL (74-106); POTASSIUM 4.3 mmol/L (3.5-5.1); SODIUM SERUM 138 mmol/L (136-145); UREA NITROGEN, BLOOD 44 mg/dL (7-18)
[2022-06-13] MEDS: MIDODRINE 5 MG TAB PO SCH ×3 (06:36→19:15)
[2022-06-13] MEDS: METOCLOPRAMIDE 10 MG/10 ML SYRP UDC GT SCH ×3 (06:36→17:30)
--- NOTE | 2022-06-13 06:50 | NUR ---
PT IS STABLE. NO ACUTE EVENTS THROUGHOUT THE NIGHT. NO S/SX OF DISTRESS NOTED. ALL NEEDS MET. ALL PRECAUTIONS IN PLACE. CALL LIGHT WITHIN EACH. WILL ENDORSE TO AM SHIFT NURSE.
--- NOTE | 2022-06-13 06:50 | NUR ---
SCHEDULED MEDICATIONS GIVEN. NO RESIDUAL NOTED ON GTUBE. ALL PRECAUTIONS IN PLACE. WILL CONTINUE TO MONITOR.
[2022-06-13 07:07] LABS: HEPATITIS A ANTIBODY IGM Negative (Negative); HEPATITIS B SURFACE ANTIBODY Reactive (.); HEPATITIS B SURFACE ANTIGEN Negative (Negative)
--- NOTE | 2022-06-13 07:15 | NUR ---
RECEIVED REPORT FROM [facility] NURSE MARIBEL FOR CONTINUITY OF CARE. PT IS IN STABLE CONDITION, APHASIC BUT ABLE TO RESPOND TO YES/NO QUESTIONS. PT IS BREATHING EVEN, REGULAR AND UNLABORED ON 2L OS VIA NC. PT IS INCONTINENT OF THE BOWEL AND WITH PRICE HUNG TO GRAVITY. G-TUBE HAD 10ML RESIDUAL, NEPRO AT 45ML/HR. RIGHT CHEST CENTRAL LINE CLEAN, DRY, AND PATENT. KRIS CATH DRESSING ON LEFT IJ CLEAN. DRY, AND INTACT. RLE WOUND WITH MILD DRAINAGE NOTED. DRESSING ON SACRUM CLEAN AND INTACT. NO SIGNS OF PAIN OR DISTRESS NOTED.
[2022-06-13 08:00] VITALS: BP 112/56
[2022-06-13] MEDS ORDERED: AMIO200T10 PO (09:09)
[2022-06-13] MEDS ORDERED: PRO5 PO (09:09)
--- NOTE | 2022-06-13 09:40 | NUR ---
RESIDUAL STILL AT 10ML WHEN ASSESSED PRIOR TO MEDICATION ADMIN. FLUSHED 30CC H2O AFTERWARD FOR PATENCY. RESUMED FEEDING AT 45ML/HR. NO SIGNS OF PAIN OR DISTRESS NOTED.
[2022-06-13] MEDS: FERROUS SULFATE 300 MG/5 ML UDC GT SCH ×3 (09:41→17:36)
[2022-06-13] MEDS: PANTOPRAZOLE 40 MG INJ VIAL IVP SCH (09:41)
[2022-06-13] MEDS: AMIODARONE 200 MG TAB PO SCH (09:42)
[2022-06-13] MEDS: FUROSEMIDE 20 MG/2 ML VIAL IVP SCH ×2 (09:42→21:52)
--- NOTE | 2022-06-13 11:00 | NUR ---
PT VISUALLY ASSESSED. NO SIGNS OF PAIN OR DISTRESS NOTED.
[2022-06-13] MEDS: ACETAMINOPHEN 325 MG TAB PO PRN (11:56)
[2022-06-13 12:00] VITALS: BP 113/45
--- NOTE | 2022-06-13 12:03 | NUR ---
PT GESTURED TO LEG, WHEN ASKED IF IN PAIN, SHE NODDED YES. ADMINISTERED PRN TYLENOL FOR PAIN IN RLE. Addendum: 06/13/22 at 1901 by Tabitha Nesbitt RN RESIDUAL 20ML
--- NOTE | 2022-06-13 13:50 | NUR ---
PERFORMED BED BATH LINEN CHANGE AND WOUND CARE ASSISTED BY JANINE STEELE. PT TOLERATED WELL, V/S STAYED WNL. PT HAD SMALL BM, DARK GREEN/BROWN IN COLOR, WITH LIQUID CONSISTENCY. APPLIED Z-GUARD IN PERINEAL AREA AND THERAHONEY ON DRESSINGS. PT IN STABLE CONDITION, NO RESIDUAL NOTED.
--- NOTE | 2022-06-13 15:00 | NUR ---
PT VISUALLY ASSESSED. CURRENTLY SLEEPING, NO SIGNS OF PAIN OR DISTRESS NOTED.
[2022-06-13 16:00] VITALS: BP 120/52
--- NOTE | 2022-06-13 17:33 | NUR ---
REVIEWED AND DISCUSSED CONSENT FORM FOR HD PERMACATHETER WITH PT'S SON. HE VERBALIZED UNDERSTANDING AND SIGNED FORM. PT CURRENTLY SLEEPING, NO SIGNS OF PAIN OR DISTRESS NOTED. NO RESIDUAL NOTED.
--- NOTE | 2022-06-13 19:29 | NUR ---
ENDORSED PT TO NIGHTSHIFT NURSE GILBERT FOR CONTINUITY OF CARE. PT IN STABLE CONDITION.
--- NOTE | 2022-06-13 19:30 | NUR ---
RECEIVED REPORT FROM DAY SHIFT NURSE JACQUELINE. PATIENT IS A&O X 2-3, APHASIC. PATIENT IS ON NASAL CANULA 2L. PATIENT HAS A RIGHT SUBCLAVIAN TRIPLE LUMEN, SALINE LOCKED. PATIENT IS RECEIVING ENTERAL FEEDING THROUGH G-TUBE (NEPRO @ 45/HR WITH WATER FLUSH 50 Q8H). PATIENT WILL BE NPO AFTER MIDNIGHT FOR PROCEDURE. PATIENT'S BREATHING IS NORMAL WITH SYMMETRICAL RISE AND FALL OF CHEST. WILL CONTINUE TO OBSERVE PATIENT.
[2022-06-13 20:00] VITALS: BP 122/56
--- NOTE | 2022-06-13 20:00 | NUR ---
CHANGED CENTRAL LINE DRESSING WITH DAY SHIFT NURSE JACQUELINE AT 194. PATIENT TOLERATED DRESSING CHANGE WELL. WILL CONTINUE TO OBSERVE PATIENT.
[2022-06-13 21:26] LABS: HEPATITIS B CORE AB TOTAL POSITIVE (NEGATIVE)
[2022-06-13] MEDS: ATORVASTATIN 80 MG TAB PO SCH (21:53)
--- NOTE | 2022-06-13 22:00 | NUR ---
GAVE 2100 MEDICATIONS TO PATIENT. PATIENT TOLERATED MEDICATIONS WELL. PILLS WERE CRUSHED AND ADMINISTERED THROUGH G-TUBE; LASIX WAS GIVEN VIA IVP THROUGH RIGHT SUBCLAVIAN. PATIENT TOLERATED WELL. WILL CONTINUE TO OBSERVE PATIENT.
--- NOTE | 2022-06-13 23:10 | NUR ---
RECEIVED REPORT FROM GILBERT PENDLETON FOR CONTINUITY OF CARE. PATIENT IS ASLEEP. NO S/SX OF PAIN NOR DISCOMFORT. NO RESPIRATORY DISTRESS NOTED. G-TUBE PLACEMENT VERIFIED VIA AUSCULTATION, NO RESIDUAL NOTED, HEAD OF THE BED ELEVATED FOR ASPIRATION PRECAUTION. SKIN WARM AND DRY TO TOUCH. BED IN THE LOWEST AND LOCKED POSITION FOR SAFETY. CALL LIGHT IN REACH.
--- NOTE | 2022-06-13 23:15 | NUR ---
GAVE REPORT AT 2310 TO OVERHEAD CRANE TRUCK LOADER HELDER BROOKE FOR CONTINUITY OF CARE. PATIENT IS STABLE.
[2022-06-14] VITALS: BP 136/67
--- NOTE | 2022-06-14 | NUR ---
PATIENT NOW NPO FOR PROCEDURE IN AM. NO RESIDUAL FROM G-TUBE.
[2022-06-14] MEDS: GAUZE TP SCH ×2 (00:30→13:50)
[2022-06-14] MEDS: THERAHONEY GEL 42.5 GM TP SCH ×2 (00:30→13:50)
[2022-06-14] MEDS: Z-GUARD PASTE TP SCH ×2 (00:31→13:50)
--- NOTE | 2022-06-14 00:31 | NUR ---
PATIENT HAD A BOWEL MOVEMENT, CLEANED PT. WOUND CARE DONE. G-TUBE SITE CLEANED AND CHANGED DRESSING. REPOSITIONED PATIENT. HEAD OF THE BED ELEVATED. CALL LIGHT IN REACH.
--- NOTE | 2022-06-14 00:31 | NUR ---
PATIENT Addendum: 06/14/22 at 0044 michael Soto RN DUPLICATE.
[2022-06-14 04:00] VITALS: BP 128/63
--- NOTE | 2022-06-14 04:20 | NUR ---
PATIENT ASLEEP. BREATHING EVEN AND UNLABORED. CALL LIGHT IN REACH.
[2022-06-14] MEDS: DILTIAZEM 30 MG TAB PO SCH ×3 (05:00→20:57)
[2022-06-14] MEDS: METOCLOPRAMIDE 10 MG/10 ML SYRP UDC GT SCH ×3 (05:11→16:23)
[2022-06-14] MEDS: MIDODRINE 5 MG TAB PO SCH ×3 (05:11→18:06)
--- NOTE | 2022-06-14 06:22 | NUR ---
ALL NEEDS ATTENDED TO. CURRENTLY NPO. NO DISTRESS NOTED. SAFETY PRECAUTIONS MAINTAINED DURING THE SHIFT. CALL LIGHT REMAINED WITHIN REACH.
--- NOTE | 2022-06-14 07:22 | NUR ---
ENDORSED TO AM RN FOR CONTINUITY OF CARE.
--- NOTE | 2022-06-14 07:30 | NUR ---
RECEIVED REPORT FROM EMT B NURSE. PATIENT IS APHASIC. RR EVEN & UNLABORED. HOB ELEVATED. ON 2L NC. NPO SINCE MIDNIGHT. RIGHT SUBCLAVIAN TRIPLE LUMEN, SALINE LOCKED. L IJ KRIS CATH DRESSING C/D/I. IV ON R WRIST #20 SL. CONSENT IN CHART. ALL SAFETY MEASURES IN PLACE. PLAN FOR PERMACATH PLACEMENT TODAY. PLAN FOR HD TODAY.
[2022-06-14 08:00] VITALS: BP 140/65
[2022-06-14] MEDS: AMIODARONE 200 MG TAB PO SCH (09:00)
[2022-06-14] MEDS: FUROSEMIDE 20 MG/2 ML VIAL IVP SCH ×2 (09:00→20:56)
[2022-06-14] MEDS: FERROUS SULFATE 300 MG/5 ML UDC GT SCH ×3 (09:00→16:23)
[2022-06-14] MEDS: PANTOPRAZOLE 40 MG INJ VIAL IVP SCH (09:00)
--- NOTE | 2022-06-14 11:30 | NUR ---
PT OFF FOR PERMACATH PLACEMENT
[2022-06-14] MEDS ORDERED: LIDOCAINE/EPI MPF 1%1:200000 30 ML VIAL INJ ONE (11:47)
[2022-06-14] MEDS ORDERED: BUPIVACAINE MPF 0.25% 10 ML VIAL INJ ONE (11:48)
[2022-06-14] MEDS ORDERED: fentaNYL citrate 0.05 MG/ML VIAL ONE (11:57)
[2022-06-14] MEDS ORDERED: PROPOFOL 200 MG/20 ML VIAL IV ONE (12:55)
[2022-06-14] MEDS ORDERED: ONDANSETRON 4 MG/2 ML VIAL IVP PRN (13:00)
[2022-06-14] MEDS ORDERED: HYDROmorphone 1 MG/ML AMP IVP PRN (13:00)
--- NOTE | 2022-06-14 13:36 | NUR ---
PT BACK FROM PERMACATH PLACEMENT. DRESSING C/D/I. PT ASLEEP. RR EVEN & UNLABORED. ON 2L NC. WILL CONTACT BOOT TURNER REGARDING DIALYSIS ORDERS.
--- NOTE | 2022-06-14 13:45 | NUR ---
CONTACTED YAMINI BUSTAMANTE REGARDING DIALYSIS TODAY.
--- NOTE | 2022-06-14 15:30 | NUR ---
DIALYSIS STARTED AT BEDSIDE.
--- NOTE | 2022-06-14 15:35 | NUR ---
CONTACTED CASE MANAGEMENT AND STATES WILL DISCHARGE PT TOMORROW.
[2022-06-14 16:00] VITALS: BP 157/72
--- NOTE | 2022-06-14 17:30 | NUR ---
DIALYSIS COMPLETED AT BEDSIDE. 2L OUT. VSS.
--- NOTE | 2022-06-14 18:04 | NUR ---
CONTACTED MD REGARDING IF MD WANTS TO CONTINUE GT FEEDING.
--- NOTE | 2022-06-14 19:30 | NUR ---
REPORT GIVEN TO ASSISTED LIVING COORDINATOR NURSEZULEMA FOR CONTINUITY OF CARE.
[2022-06-14 20:00] VITALS: BP 136/80
[2022-06-14] MEDS: ATORVASTATIN 80 MG TAB PO SCH (20:58)
[2022-06-15] VITALS: BP 131/71
[2022-06-15] MEDS: GAUZE TP SCH ×2 (01:20→13:24)
[2022-06-15] MEDS: Z-GUARD PASTE TP SCH ×2 (01:20→13:25)
[2022-06-15] MEDS: THERAHONEY GEL 42.5 GM TP SCH ×2 (01:20→13:24)
--- NOTE | 2022-06-15 03:30 | NUR ---
md DECIDED TO CONTINUE WITH THE TUBE FEEDING IT WAS BEFORE. TUBE FEEDING STARTED, WILL CONTINUE TO MONITOR.
[2022-06-15 04:00] VITALS: BP 133/72
[2022-06-15] MEDS: MIDODRINE 5 MG TAB PO SCH ×2 (07:00→13:00)
[2022-06-15] MEDS: METOCLOPRAMIDE 10 MG/10 ML SYRP UDC GT SCH ×2 (07:30→11:30)
--- NOTE | 2022-06-15 08:45 | NUR ---
PT RECEIVED FROM [facility] RT ON SUPPLEMENTAL OXYGEN OF 3 LITERS NASAL CANNULA, PT IN SEMIFOWLERS POSITION IN BED AND NOT IN ANY RESPIRATORY DISTRESS, PT IS SATING 97% AND WILL CONTINUE TO MONITOR.
[2022-06-15] MEDS: FUROSEMIDE 20 MG/2 ML VIAL IVP SCH (09:00)
[2022-06-15] MEDS: PANTOPRAZOLE 40 MG INJ VIAL IVP SCH (09:00)
[2022-06-15] MEDS: AMIODARONE 200 MG TAB PO SCH (09:00)
[2022-06-15] MEDS: FERROUS SULFATE 300 MG/5 ML UDC GT SCH ×2 (09:00→13:33)
[2022-06-15] MEDS: DILTIAZEM 30 MG TAB PO SCH (13:00)
[2022-06-15 13:44] LABS: ANION GAP 10.8 (8-16); CARBON DIOXIDE 29.7 mmol/L (21-32); CHLORIDE 105 mmol/L (98-107); CREATININE 2.5 mg/dL (0.6-1.3); GLUCOSE 127 mg/dL (74-106); POTASSIUM 4.5 mmol/L (3.5-5.1); SODIUM SERUM 141 mmol/L (136-145); UREA NITROGEN, BLOOD 56 mg/dL (7-18)
[2022-06-15] MEDS ORDERED: FUROSEMIDE 40 MG/4 ML VIAL IVP SCH (13:45)
== END 2022-06-15 16:15 | DRG 871 ==
LOC: MED 21:13 → MTU 06-02 01:44 → MIC 06-02 02:55 → MTU 06-07 10:58
PROVIDERS: ADMIT Family Medicine; ATTEND Family Medicine
PROC: 5A1945Z Respiratory Ventilation, 24-96 Consecutive Hours (ICD-10-PCS; principal; 2022-06-02)
PROC: 0BH17EZ Insertion of Endotracheal Airway into Trachea, Via Natural or Artificial Opening (ICD-10-PCS; 2022-06-02)
PROC: 02HV33Z Insertion of Infusion Device into Superior Vena Cava, Percutaneous Approach (ICD-10-PCS; 2022-06-02)
PROC: B548ZZA Ultrasonography of Superior Vena Cava, Guidance (ICD-10-PCS; 2022-06-02)
PROC: 30233N1 Transfusion of Nonautologous Red Blood Cells into Peripheral Vein, Percutaneous Approach (ICD-10-PCS; 2022-06-02)
PROC: 02HV33Z Insertion of Infusion Device into Superior Vena Cava, Percutaneous Approach (ICD-10-PCS; 2022-06-09)
PROC: B548ZZA Ultrasonography of Superior Vena Cava, Guidance (ICD-10-PCS; 2022-06-09)
PROC: 5A1D70Z Performance of Urinary Filtration, Intermittent, Less than 6 Hours Per Day (ICD-10-PCS; 2022-06-09)
PROC: 5A1D70Z Performance of Urinary Filtration, Intermittent, Less than 6 Hours Per Day (ICD-10-PCS; 2022-06-10)
PROC: 5A1D70Z Performance of Urinary Filtration, Intermittent, Less than 6 Hours Per Day (ICD-10-PCS; 2022-06-11)
PROC: 02PYX3Z Removal of Infusion Device from Great Vessel, External Approach (ICD-10-PCS; 2022-06-14)
PROC: 02HV33Z Insertion of Infusion Device into Superior Vena Cava, Percutaneous Approach (ICD-10-PCS; 2022-06-14)
PROC: B518ZZA Fluoroscopy of Superior Vena Cava, Guidance (ICD-10-PCS; 2022-06-14)
PROC: 0JH63XZ Insertion of Tunneled Vascular Access Device into Chest Subcutaneous Tissue and Fascia, Percutaneous Approach (ICD-10-PCS; 2022-06-14)
PROC: 5A1D70Z Performance of Urinary Filtration, Intermittent, Less than 6 Hours Per Day (ICD-10-PCS; 2022-06-14)
DX: A41.9 Sepsis, unspecified organism (principal); E43 Unspecified severe protein-calorie malnutrition; J18.9 Pneumonia, unspecified organism; R65.21 Severe sepsis with septic shock; N17.0 Acute kidney failure with tubular necrosis; J96.01 Acute respiratory failure with hypoxia; I48.20 Chronic atrial fibrillation, unspecified; G93.40 Encephalopathy, unspecified; N39.0 Urinary tract infection, site not specified; I13.0 Hypertensive heart and chronic kidney disease with heart failure and stage 1 through stage 4 chronic kidney disease, or unspecified chronic kidney disease; E87.8 Other disorders of electrolyte and fluid balance, not elsewhere classified; D63.8 Anemia in other chronic diseases classified elsewhere; D50.9 Iron deficiency anemia, unspecified; I48.0 Paroxysmal atrial fibrillation; E78.5 Hyperlipidemia, unspecified; E66.01 Morbid (severe) obesity due to excess calories; Z20.822 Contact with and (suspected) exposure to COVID-19; L89.159 Pressure ulcer of sacral region, unspecified stage; I50.9 Heart failure, unspecified; N18.9 Chronic kidney disease, unspecified; E11.22 Type 2 diabetes mellitus with diabetic chronic kidney disease; Z91.041 Radiographic dye allergy status; Z79.899 Other long term (current) drug therapy; Z68.26 Body mass index [BMI] 26.0-26.9, adult; Z79.01 Long term (current) use of anticoagulants; Z74.01 Bed confinement status; Z93.1 Gastrostomy status; Z90.5 Acquired absence of kidney; Z86.73 Personal history of transient ischemic attack (TIA), and cerebral infarction without residual deficits; Z85.528 Personal history of other malignant neoplasm of kidney
CPT/HCPCS: 31500; 36415; 36430; 36556; 36600; 71045; 76770; 80048; 80053; 81001; 82272; 82570; 82728; 82803; 82948; 83540; 83605; 83735; 83880; 84100; 84156; 84300; 85025; 85610; 85730; 86704; 86706; 86708; 86709; 86803; 86886; 86900; 86901; 86920; 87040; 87070; 87086; 87205; 87340; 89220; 93005; 94003; 94640; 96365; 96367; 96375; 99291; C1750; C9113; J0456; J0696; J1160; J1644; J1940; J2001; J2270; J2405; J2543; J2704; J3010; J3480; J3490; J7060; J8597; P9016; P9046; Q0092